=== PATIENT | female | born 2000 | race Caucasian/White ===

== ENCOUNTER 2021-10-28 13:39 | Outpatient (CLI) | payer BC, SELFPAY ==
--- NOTE | 2021-10-28 14:00 | CRLHL7_ITS ---
For Patients: As a result of the Century Cures Act, medical imaging exams and procedure reports are released immediately into your electronic medical record. You may view this report before your referring provider. If you have questions, please contact your health care provider. INDICATION: Evaluate anatomy. COMPARISON: 08.08.21 TECHNIQUE: Real time nieto scale imaging of the fetus was performed as well as color Doppler analysis of the umbilical vessels. FINDINGS: Sonographic imaging demonstrates a single living intrauterine gestation. Fetus demonstrates a regular cardiac rate of 148 beats per minute. Fetus has a variable position. The placenta lies posteriorly without evidence of placenta previa. Edge of the placenta is located 3.9 cm from the internal cervical os. Amniotic fluid volume appears normal. Single deepest vertical pocket: 4.9 cm. The cervix is closed and measures 3.0 cm in length. The composite ultrasound gestational age is calculated at 20 weeks 3 days with an estimated sonographic due date of 03/14/2022. The estimated weight is 335 grams which lies at the 54th %. The following biometric measurements were obtained: Biparietal diameter: 5.0 cm/21 weeks 0 days 87th% Head circumference: 17.8 cm/20 weeks 2 days 54th% Abdominal circumference: 15.5 cm/20 weeks 5 days 67th% Femur length: 3.0 cm/19 weeks 3 days 22nd% The HC/AC ratio measures: 1.15 range (1.07-1.25) On anatomic survey, there is a normal appearance of the cerebral ventricles, cavum septi pellucidi, cisterna magna and cerebellum. The nose, lips, and facial profile appear normal. The cervical, thoracic and lumbar spine are well visualized and appear normal. There is a normal four-chamber heart view and the left and right ventricular outflow tracts appear normal. The diaphragm and stomach appear normal. The kidneys and bladder also appear normal. There is a normal three-vessel cord and cord insertion site. The four extremities appear normal. IMPRESSION: Normal OB ultrasound exam with concordance of clinical and sonographic dating. No intrinsic abnormalities noted on anatomic survey. Dictated by Antwon Navarro MD @ 10/29/2021 8:39:39 AM (Electronically Signed)
== END 2021-10-28 13:40 | disposition home or self-care (01) ==
LOC: US 13:40
PROVIDERS: Visit Provider Physician Assistant
DX: Z34.92 Encounter for supervision of normal pregnancy, unspecified, second trimester (principal); Z3A.20 20 weeks gestation of pregnancy
CPT/HCPCS: 76805

== ENCOUNTER 2021-12-25 10:02 | Outpatient (CLI) | payer BC, SELFPAY ==
[2021-12-26 17:20] LABS: Rapid Plasma Reagin (RPR) Non Reactive (Non Reactive)
== END 2021-12-25 10:03 | disposition home or self-care (01) ==
LOC: NFLDREF 10:02
PROVIDERS: Visit Provider Obstetrics & Gynecology
DX: Z34.93 Encounter for supervision of normal pregnancy, unspecified, third trimester (principal); Z3A.28 28 weeks gestation of pregnancy
CPT/HCPCS: 86592

== ENCOUNTER 2022-02-19 15:11 | Outpatient (CLI) | payer BC, SELFPAY ==
[2022-02-19 16:45] LABS: Amphetamine Screen Urine Negative (Negative); Barbiturate Screen Urine Negative (Negative); Benzodiazepines Screen Urine Negative (Negative); Cannabinoid Screen Urine Negative (Negative); Cocaine Screen Urine Negative (Negative); Methadone Screen Urine Negative (Negative); Methamphetamines Screen Urine Negative (Negative); Opiate Screen Urine Negative (Negative); Oxycodone Screen Urine Negative (Negative); Phencyclidine Screen Urine Negative (Negative); Tricyclic Antidepressant Urine Negative (Negative)
[2022-02-20 18:48] LABS: Buprenorphine Screen Urine Negative (Negative)
== END 2022-02-19 15:12 | disposition home or self-care (01) ==
LOC: NFLDREF 15:28
PROVIDERS: Visit Provider Advanced Practice Midwife
DX: Z34.93 Encounter for supervision of normal pregnancy, unspecified, third trimester (principal); Z02.83 Encounter for blood-alcohol and blood-drug test
CPT/HCPCS: 80306

== ENCOUNTER 2022-02-20 09:23 | Outpatient (CLI) | payer BC, SELFPAY ==
[2022-02-21 10:44] LABS: Strep B DNA Probe POSITIVE (Negative)
== END 2022-02-20 09:24 | disposition home or self-care (01) ==
LOC: NFLDREF 09:23
PROVIDERS: Visit Provider Advanced Practice Midwife
DX: Z34.83 Encounter for supervision of other normal pregnancy, third trimester (principal); Z3A.37 37 weeks gestation of pregnancy
CPT/HCPCS: 87081; 87653

== ENCOUNTER 2022-03-05 15:40 | Outpatient (CLI) | payer BC, SELFPAY ==
--- NOTE | 2022-03-05 16:00 | CRLHL7_ITS ---
For Patients: As a result of the Cures Act, medical imaging exams and procedure reports are released immediately into your electronic medical record. You may view this report before your referring provider. If you have questions, please contact your health care provider. INDICATION: Size smaller than dates. TECHNIQUE: Transabdominal obstetrical ultrasound. COMPARISON: October 28, 2021. FINDINGS: Single living intrauterine in vertex presentation. Posterior placenta. heart rate 134 beats per minute. Normal amniotic fluid. Single deepest pocket measurement 7 cm. Biparietal diameter 9.5 cm, 30 weeks 6 days, 86 percentile. Head circumference 34.9 cm, 40 weeks 3 days, 82nd percentile. Abdominal circumference 35.1 cm, 39 weeks 0 days, 84th percentile. Femur length 7.4 cm, 37 weeks 6 days, 43rd percentile. Composite calculated ultrasound age 39 weeks 0 days with a sonographic due date of March 12, 2022. Appropriate growth and maturation since the prior study. Estimated weight 3622 g which lies at the 78th percentile. The head to abdominal circumference ratio is 0.99. The femur length to abdominal circumference ratio is 21.1. Both of these indices are normal. IMPRESSION: Single living intrauterine in vertex presentation. Posterior placenta. heart rate 134 beats per minute. Composite calculated ultrasound age 39 weeks 0 days with a sonographic due date of March 12, 2022. Dictated by Vipin Rivera MD @ 03/06/2022 9:00:23 AM (Electronically Signed)
== END 2022-03-05 15:41 | disposition home or self-care (01) ==
LOC: US 15:41
PROVIDERS: Visit Provider Advanced Practice Midwife
DX: O36.5930 Maternal care for other known or suspected poor fetal growth, third trimester, not applicable or unspecified (principal); Z3A.39 39 weeks gestation of pregnancy
CPT/HCPCS: 76816

== ENCOUNTER 2022-03-20 00:09 | Inpatient (IN) | payer BC, SELFPAY ==
[2022-03-20] VITALS (25 sets, daily range): BP systolic 119–154; BP diastolic 76–104; PULSE 73–99; RESP 16; TEMP 36.6–37.1; O2SAT 95–96; BMI 31.3
--- NOTE | 2022-03-20 01:09 | W.PM.LDBA ---
Subjective History of Present Illness Time Seen by Provider: 01:00 Date Seen: 03/20/22 Narrative: Patient is being admitted to Labor and Delivery for SROM, elevated blood pressures. She is a 21 year old at 40.3 weeks gestation. Her full history and physical was dictated by Buster Pickens on 02/25/22. Please see this for details. She states she noted a large gush of fluid around 11:30 tonight. Denies feeling any ctx. Denies any headache, vision changes or epigastric pain. Partner is at bedside for support. Blood type: A positive GBS POSITIVE H&P done 02/25/22 by Buster Pickens CNM 1. E cigarette use Discontinued with positive UPT 2. Marijuana use Planning on quitting. Urine drug screen 09/05/2021: +THC, otherwise negative UDS @ 36wk apt - neg, ok for waterbirth 3. History of depression Hospitalized for suicidality at age 14 At [facility]: doing well and on no medication 4. Rubella non-immune MMR 5. GBS positive, Needs antibiotics in labor 6. Measuring small for dates @ 38w 2d, Growth u/s ordered. 03/05/22 - Growth u/s: FHR 134, Vertex, SDP 7cm, 78%ile, EFW 3688g OB - H&P: Exam Physical Exam: Vital signs: Pulse BP 76 130/79 03/20/22 01:01 03/20/22 01:01 Constitutional: Constitutional: no acute distress Routine HEENT Exam: Head: Present atraumatic Routine Neck Exam: Neck: Present full ROM Routine Respiratory Exam: Respiratory: Present CTA bilaterally Routine Cardiovascular Exam: Cardiovascular: RRR Routine Exam: External: Present normal external exam Perineum Description: Normal Detailed Labor and Delivery Exam: Patient Gravid: yes Dilation (cm): 2 (2/70/-3) Effacement (%): 70 Cervix position: posterior Consistency: medium Contraction frequency (min): 0 (Rare mild ctx) Contraction intensity: Mild Fetus (Single): Station: -3 Amniotic Membrane Status: SROM (clear, 2330 on 03/19/22) Amniotic Membrane Fluid Description: Clear Heart Rate Baseline: 140 Monitor Accelerations: Present Monitor Decelerations: Variable (occ variable decel noted) Director Search Marketing Strategies Variability: Moderate (6-25) (min - mod) Routine Extremities Exam: Extremities: Present full ROM; Absent pedal edema Routine Back/Spine/Pelvis Exam: Back/Spine: full ROM Routine Skin Exam: Present intact, dry and warm Routine Neurological Exam: Present alert and oriented X3 Routine Psychiatric Exam: Present normal affect and normal thought process OB - Problem Based A/P Additional Plan (1) SROM (spontaneous rupture of membranes): Status: Acute (2) History of marijuana use: Problem details: UDS today d/t positive screen in early , pt denies current or recent use. Status: Acute Plan at 40.3 weeks GBS Positive complicated by marijuana use, Stopped by third trimester SROM X 2 hours, clear fluid Occ variable decels Elevated blood pressures on admit Admit to L & D Reviewed expectant management vs augmentation. Recommended augmentation w/ oral cytotec r/t elevated blood pressures. Risks and benefits reviewed. Candidate for analgesia of choice. Planning unmedicated Desires waterbirth. Hep C negative and consent signed. UDS negative at 36 weeks. Remains a candidate at this time, but may risk out if BPs continue to rise or decels worsen Start GBS prophylaxis per protocol Continues monitoring r/t augmentation and concern for variable decels Preeclampsia labs collected, pending. Will continue to monitor BPs and consult if needed Anticipate progress to NVD. Delivery/Labor/Induction Plan Induction method: per misoprostol protocol
[2022-03-20] MEDS: LACTATED RINGERS 1000 ML 1,000 ML IV ×2 (01:14→12:00)
[2022-03-20 01:15] LABS: Hematocrit 36.4 % (33.0-51.0); Hemoglobin* 12.4 gm/dL (12.0-16.0); Mean Corpuscular HGB Conc 34 gm/dL (32-36); Mean Corpuscular Hemoglobin 32 pg (26-34); Mean Corpuscular Volume 93 fL (80-100); Platelet Count* 167 K/uL (140-440); Red Blood Count 3.93 m/uL (4.00-5.20); White Blood Count* 6.65 K/uL (4.50-11.00)
[2022-03-20] MEDS: AMPICILLIN 2 GM in 0.9 % SODIUM CHLORIDE Mini-bag 100 ML IVPB (01:15)
[2022-03-20] MEDS: miSOPROStoL 25 MCG/0.25 TABLET PO (01:15)
[2022-03-20 01:23] LABS: Slide Review Reflex No
[2022-03-20 01:58] LABS: Alanine Aminotransferase* 51 U/L (4-35); Creatinine* 0.4 mg/dL (0.5-1.5); Est. Creatinine Clearance* 206.52; Estimated Glomerular Filt Rate 143 ml/min; SARS PCR* Negative SARS-CoV-2 (Negative)
[2022-03-20 01:59] LABS: Aspartate Amino Transferase* 39 U/L (12-35); Blood Urea Nitrogen* 10 mg/dL (5-24)
[2022-03-20 02:18] LABS: Total Protein Urine 25 mg/dL
[2022-03-20 02:20] LABS: Creatinine Urine 72.7 mg/dL
[2022-03-20 02:30] LABS: Amphetamine Screen Urine Negative (Negative); Barbiturate Screen Urine Negative (Negative); Benzodiazepines Screen Urine Negative (Negative); Cannabinoid Screen Urine Negative (Negative); Cocaine Screen Urine Negative (Negative); Methadone Screen Urine Negative (Negative); Methamphetamines Screen Urine Negative (Negative); Opiate Screen Urine Negative (Negative); Oxycodone Screen Urine Negative (Negative); Phencyclidine Screen Urine Negative (Negative); Tricyclic Antidepressant Urine Negative (Negative)
--- NOTE | 2022-03-20 02:53 | PM.OBPNL ---
Subjective Time Seen by Provider: 02:45 Date Seen: 03/20/22 Narrative: Called to bedside by RN to review the FHTs. Elsy presented to triage with SROM, large amount of clear fluid. At the time of admit, had an occasional ctx with a variable. SVE was 2/70/-3 at that time. Blood pressures were elevated, and preecalmpsia labs were ordered and pending. Since then, she was given 1 dose of cytotec around 0115 per RN. She is now having more frequent ctx that she states she can barely feel. Repetitive late decels noted with those ctx. ?Her blood pressures have remained elevated. Objective Exam: VSS, afebrile General Appearance:? Calm, cooperative. No acute distress. ? Psychiatric Exam: Alert and oriented, appropriate affect Abdomen: Gravid Ctx: ?Q 2-4 min apart. ?Mild FHTs: Baseline: 165 Variability: min Accels: none Decels: repetitive late decels, maria fernanda 90-135. SVE: 2/60/-4 Membranes: SROM X 3.5 hours ? Vital Signs: Last Vital Signs Pulse 77 03/20/22 02:15 BP 139/90 H 03/20/22 02:15 Assessment Heart Rate Baseline: 140 Plan Plan: Assessment:?? 21 yo at 40.3 weeks gestation?? GBS positive She is parminder, but remains comfortable at this time Labor type: Augmented w/ cytotec X 1 dose. complicated by: marijuana use, stopped by 3rd trimester Labor complicated by: -minimal variability, repetitive persistent late decels? Preeclampsia -BPs 140s/90s Abnormal labs. P/C ratio 0.3, elevated AST and ALT ? Plan:?? IV fluid bolus already started by RN. Various position changes attempted without resolution of decels Pt remote from delivery Dr. Warren consulted. She will come in to further evaluate. Team called in in case decision made to proceed with a Reviewed with pt current situation. Questions answered.
--- NOTE | 2022-03-20 05:21 | PM.OBPNL ---
Subjective Time Seen by Provider: 06:45 Date Seen: 03/20/22 Narrative: Daina is coping well with labor pain/contractions. She is starting to feel them now, but remains comfortable at this time. She is currently being supported by her partner and mom. Plan of care reviewed previously. Once called for consult, Dr. Warren arrived and reviewed the fht's strip, which had somewhat improved at that time. Decision at that time made to proceed with pitocin 4 hours after initial cytotec to allow for more control/ability to D/C if not tolerated by the baby. And continue to monitor the FHTs closely. Dr. Warren and OR team to remain in house. Objective Exam: VSS, afebrile General Appearance:? Calm, cooperative. No acute distress. ? Psychiatric Exam: Alert and oriented, appropriate affect Abdomen: Gravid Ctx: ?Q 2-4 min apart. ?Mild FHTs: Baseline: 150 Variability: min - mod Accels: none noted Decels: variable and late decels noted at times SVE: deferred at this time Membranes: SROM 7.5 hrs X hours ? Vital Signs: Last Vital Signs Pulse 83 03/20/22 04:06 BP 137/82 03/20/22 04:06 Assessment Heart Rate Baseline: 140 Plan Plan: Assessment:?? 21 yo at 40.3 weeks gestation?? Patient is coping well with challenges of labor.?? Labor: pitocin augmented after SROM FHTs: variable and late decels at times? complicated by: marijuana use Labor complicated by: -late an variable decels -preeclampsia GBS +? ? Plan:?? Continue with routine intrapartum cares as ordered.?? Continue with pitocin augmentation. Will continue to monitor the FHTs strip closely. Consult manager of selection and assessment OB as needed. Continue GBS prophylaxis per protocol Continue to monitor BPs closely. Patient encouraged to change positions to promote physiologic labor and .?? Nonpharmacologic comfort measures per patient preference. Monitor for progress.
[2022-03-20] MEDS: LACTATED RINGERS 1000 ML 1,000 ML 125 ML IV (05:24)
[2022-03-20] MEDS: OXYTOCIN 30 unit/500 ML in NS 30 UNIT/500 ML BAG IVPB (05:25)
[2022-03-20] MEDS: AMPICILLIN 1 GM in 0.9 % SODIUM CHLORIDE Mini-bag 100 ML IVPB ×2 (05:28→09:13)
--- NOTE | 2022-03-20 10:15 | PM.OBPNL ---
Subjective Date Seen: 03/20/22 Narrative: Daina is feeling an increase in pain and pressure with contractions. She is feeling rectal pressure with contractions that has increased over the last hour. She was checked by the RN and found to be 7-8//90%/-1 to 0 station. She has been changing positions from left later, right later with the peanut ball and now thrown position. She just starting using nitrous and is having some relief with it. She continues to have some lates along with earlys and variables. Good variability. will continue to monitor the strip and provide support to the patient. Pitocin was turned off around 0930 and she has continued to contract regularly. Objective Vital Signs: Last Vital Signs Temp 98.2 F 03/20/22 07:30 Pulse 73 03/20/22 09:54 BP 138/82 03/20/22 09:54 Pelvic Exam Dilation (cm): 7-8 Effacement (%): 90 Station: -1 Contractions Monitor mode: External Contraction pattern: Regular Contraction intensity: Strong/Firm Pitocin Rate (mU/min): 0 Assessment Assessment: active labor Station: -1 Amniotic Membrane Status: SROM (clear, 2330 on 03/19/22) Status: Category ll Heart Rate Baseline: 140 Food Or Baggage Handling [place] Variability: Moderate (6-25) Monitor Accelerations: Present Monitor Decelerations: Variable (occ variable decel noted) Plan Plan: 1. Continue to monitor tracing closely and consult with OB if needed. 2. Provide labor support and frequent position changes to promote optimal position and for tolerance of labor. 3. Continuous monitoring.
[2022-03-20] MEDS: IBUPROFEN 600 MG TABLET PO ×2 (13:24→19:52)
--- NOTE | 2022-03-20 13:26 | P.OBPRC_ITS ---
Procedure Procedure Done: Global Procedure Details: Procedures Operation Date: 03/20/22 04:00 Actual Procedure Side Surgeon p Section Beckie Warren MD Events: Pre-Eclampsia (Pre-Ecampsia without severe features) Intrapartal Events: Labor Augmentation (cytotec x1 and pitocin) and Distress (late, early and varible decels) Delivery augmentation: pitocin Delivery monitor: external FHT and external uterine Route of delivery: Episiotomy description: Left Mediolateral (2rd degree equivilent without extension) Laceration description: None Delivery repair: Chromic Estimated blood loss (mL): 50 Anesthesia type: nitrous Disposition: floor Narrative: Patient is a 21 year-old G1 now P1 admitted on 03/20/2022 at 40 Weeks, 3 Days gestation for SROM.? Cervical exam on admission was 2 cm/70 % effaced/-3 station with membranes ruptured in vertex presentation.? Contractions were occasional and she denied feeling any pain with them.? heart rate demonstrated baseline 140 bpm with moderate variability, + accelerations, variable decelerations; a category 2 tracing.? SROM occurred on 03/19/22 at 2330 with clear fluid.? ?? Labor Analgesia:? None. Used nitrous some but now with pushing. ?? Pitocin:? Yes. Augmentation and after delivery of the placenta. Pitocin stopped at 0930 and she continued to contract on her own. ?? Labor onset:? 0400? ?? Complete:? 1147? ?? Pushing:? 1149? ?? heart tones during second stage were category 2. Baseline 120-130 with moderate variability. Frequent late, early and variable decelerations noted. One prolonged decel to the 80's with return to baseline. Dr. Ren called to the room at that time and arrived at 1150. Consulted and considered vacuum assistance but patient was pushing very effectively so allowed to continue pushing. Dr. Ren noted that there was a very tight perineum and opted for a episiotomy to expedite delivery due to concerns with the heart tracing.? ?? At 1213 a viable male infant delivered in vertex CATHY presentation over episiotomy via spontaneous vaginal delivery.? Infant was placed on maternal abdomen.? Cord was clamped and cut after a 5 minute.? Nose and mouth were bulb suctioned.? Infant weight 3290g.? 8 at 1 minute and 9 at 5 minutes.? Shoulder dystocia: no.? Nuchal cord: no, cord around arms and in babies hands at delivery..? ?? Placenta delivered spontaneously and complete at 1220 with a 3 vessel cord.?Velamentous, marginal cord noted on delivery but not recognized on ultrasound. ?? Mother and were stable after delivery.? ?? Lacerations:? Left mediolateral episiotomy cut by Dr. Ren without extension, equivalent to 2nd degree laceration, repaired.? ?? Blood loss: 50 mL.? Blood loss measurement type: QBL? Sponge and needles counts are correct. [place] Infant Gender: Male presentation: vertex Placental Delivery Description: Spontaneous Cord Description: 3 Vessels, Around Body x1 and Around Extremity x1 (loosly wrapped up in arms and hands at delivery) [place] A Position: Right Occiput Anterior Placental Delivery: Spontaneous Cord Description: Around Extremity x1 (loosely wrapped around arms and hands at delivery) OB Vag Delivery Procedures Additional Procedures ECV: No NST: Yes D&C: No Laceration Repair: Yes
[2022-03-20] MEDS: LIDOCAINE 1% MDV 20 ML INJECTION (13:35)
[2022-03-20] MEDS: ACETAMINOPHEN 500 MG TABLET 1000 MG PO ×2 (15:55→22:40)
[2022-03-21 00:39] VITALS: BP 130/80; PULSE 99; RESP 16; TEMP 36.6; O2SAT 96
[2022-03-21] MEDS: IBUPROFEN 600 MG TABLET PO ×2 (01:30→07:58)
[2022-03-21 04:09] LABS: Hematocrit 37.6 % (33.0-51.0); Hemoglobin* 12.7 gm/dL (12.0-16.0); Mean Corpuscular HGB Conc 34 gm/dL (32-36); Mean Corpuscular Hemoglobin 32 pg (26-34); Mean Corpuscular Volume 93 fL (80-100); Platelet Count* 191 K/uL (140-440); Red Blood Count 4.03 m/uL (4.00-5.20); White Blood Count* 15.49 K/uL (4.50-11.00)
[2022-03-21 04:16] LABS: Slide Review Reflex No
[2022-03-21 04:25] LABS: Alanine Aminotransferase* 46 U/L (4-35); Aspartate Amino Transferase* 48 U/L (12-35); Blood Urea Nitrogen* 15 mg/dL (5-24); Creatinine* 0.5 mg/dL (0.5-1.5); Est. Creatinine Clearance* 165.22; Estimated Glomerular Filt Rate 136 ml/min; INR 0.87 (0.91-1.10); Prothrombin Time 12.4 Seconds
[2022-03-21 04:26] LABS: Fibrinogen* 476 mg/dL (200-450)
[2022-03-21 04:38] VITALS: BP 136/90; PULSE 99; RESP 16; TEMP 36.6; O2SAT 96
[2022-03-21 09:34] VITALS: BP 127/88; PULSE 88; RESP 18; TEMP 36.6; O2SAT 95
--- NOTE | 2022-03-21 09:34 | P.DS_ITS ---
DS: Providers Provider Date Seen: 03/21/22 Date of admission: 03/20/22 00:09 Primary care physician: Not a Local Provider Admitting Clinician: Erin Boyce CNM Consults: 03/20/22 00:28 Consult to Fire Extinguisher Repairer Inspector [CONS] Routine Comment: Reason for Consult:: Substance Abuse Screening Attending Physician on discharge: Minoo Ye CNM Date of Discharge: 03/21/22 DS: Diagnosis Discharge Diagnosis (1) care and examination immediately after delivery: Status: Acute (2) Lactating mother: Status: Acute (3) Status post vaginal delivery: Status: Acute Exam Const: Vital Signs, click to edit/add: Vital Signs - 24 hr 03/20/22 09:54 03/20/22 10:49 03/20/22 10:57 Temperature Pulse Rate 73 81 79 Pulse Rate [Pulse Oximeter] Respiratory Rate Blood Pressure 138/82 149/96 H 154/91 H Blood Pressure [Le ft Arm] Pulse Oximetry Oxygen Delivery Me thod 03/20/22 12:24 03/20/22 12:43 03/20/22 12:55 Temperature Pulse Rate 98 80 85 Pulse Rate [Pulse Oximeter] Respiratory Rate Blood Pressure 137/85 126/79 137/82 Blood Pressure [Le ft Arm] Pulse Oximetry Oxygen Delivery Me thod 03/20/22 13:10 03/20/22 13:25 03/20/22 13:26 Temperature Pulse Rate 81 76 73 Pulse Rate [Pulse Oximeter] Respiratory Rate Blood Pressure 137/90 H 154/94 H 153/96 H Blood Pressure [Le ft Arm] Pulse Oximetry Oxygen Delivery Me thod 03/20/22 13:40 03/20/22 13:55 03/20/22 14:10 Temperature Pulse Rate 78 75 83 Pulse Rate [Pulse Oximeter] Respiratory Rate Blood Pressure 144/91 H 150/89 H 154/91 H Blood Pressure [Le ft Arm] Pulse Oximetry Oxygen Delivery Me thod 03/20/22 15:50 03/20/22 19:55 03/21/22 00:39 Temperature 97.9 F 97.9 F 97.9 F Pulse Rate Pulse Rate [Pulse Oximeter] 87 99 99 Respiratory Rate 16 16 16 Blood Pressure Blood Pressure [Le ft Arm] 119/76 130/89 130/80 Pulse Oximetry 95 96 96 Oxygen Delivery Me thod Room Air Room Air Room Air 03/21/22 04:38 Temperature 97.9 F Pulse Rate Pulse Rate [Pulse Oximeter] 99 Respiratory Rate 16 Blood Pressure Blood Pressure [Le ft Arm] 136/90 H Pulse Oximetry 96 Oxygen Delivery Me thod Room Air Documenting provider has reviewed patient's vital signs: yes Common normals: no apparent distress, oriented x3, healthy appearing and alert HENMT: Common normals: normocephalic Head and scalp: normocephalic Eye: Common normals: PERRL Pupil: PERRL Neck & C-Spine: Common normals: full ROM and supple Chest: Common normals: inspection of chest normal Resp: Common normals: normal respiratory effort and clear to auscultation bilaterally Auscultation: clear to auscultation bilaterally Cardio: Common normals: regular rate and regular rhythm Rate: regular rate Rhythm: regular rhythm GI: Common normals: soft to palpation Inspection: normal to inspection Palpation: soft : OB/external & speculum: Yes perineal/vaginal laceration (Episiotomy; well approximated) Uterus: U/U Lochia: small Back & Pelvis: Common normals: thoracic and lumbar spine normal to inspection Extremity: Common normals: normal to inspection and full ROM Neuro: Common normals: oriented x3 Sensorium/orientation: alert Speech: speech normal Psych: Common normals: mental status grossly normal, thought process normal, speech normal and activity/motor behavior normal Speech: normal speech Thought process: normal thought process Skin: Common normals: no rashes or lesions noted General skin exam: no rashes or lesions noted OB - DS: Summary Hospital Course Hospital Course: The patient is a 21 year old G [] P [] at [] weeks gestation that was admitted to the Center on 03/20/22 for []. She had an [uncomplicated/complicated] [vaginal/] delivery. She delivered a viable [male/female] infant. She is [breast/bottle] feeding. the patient has done well. Time spent discussing smoking cessation with patient: 3 to 10 minutes Peripartum Data delivery method: Vaginal Episiotomy description: Left Mediolateral Procedures: Procedures Operation Date: 03/20/22 04:00 Actual Procedure Side Surgeon p Section Beckie Warren MD complications: none Gender: Male Discharge Plan: Home Time Spent with Patient Time attestation: Total time spent providing and/or coordinating discharge services: Discharge Plan Discharge Disposition: Home, Self-Care Date of Admission: 03/20/22 00:09 Attending Provider on Discharge: Minoo Ye Primary Care Provider: Provider,Not a Local Condition: Stable Anticipated Discharge Date/Time: 03/21/22 12:00 Discharge Medications: New acetaminophen 500 mg Tablet 1,000 mg PO Q6H PRNQty: 0 0RF docusate sodium 100 mg Capsule 100 mg PO DAILY Qty: 90 0RF ibuprofen 600 mg Tablet 600 mg PO Q6H PRNQty: 60 0RF Continued Multi-DHA(with vit K) 27 mg iron-800 mcg-260 mg capsule 1 cap PO .QD Discontinued pyridoxine (vitamin B6) 50 mg tablet 50 mg PO ONCE Discharge Orders: Discharge Order (Routine); Ordered 03/21/22 Ordered By: Minoo Ye Patient Education: OB Vaginal/Breast Feeding Additional Instructions: Discharge instructions were reviewed with the patient including signs and symptoms of infection and home going medications Nothing vaginally for 6 weeks: no tampons or intercourse Off Work or School for 6 weeks 2-week visit: discuss infant feeding concerns, review control options and screen for anxiety/depression. 6-week visit for an annual exam. consultation services are available to all mothers and babies for the first year after delivery.? To make an appointment, please call [phone]. Activity Level: Activity as Tolerated Discharge Diet: Regular Follow Up Appointments: [facility] [Provider Group] (2 weeks and 6 weeks ) Forms: [employer] Info Instructions
[2022-03-21 12:38] VITALS: BP 127/83; PULSE 97; RESP 16; TEMP 37.2; O2SAT 96
--- NOTE | 2022-03-21 16:14 | PC.SOCIAL ---
Social Work received a referral for substance abuse screening. Reviewed toxicology screen for mother and it was negative for all substances. Meconium for baby is pending. Social Work will follow up as necessary. ?
--- NOTE | 2022-03-27 15:07 | PC.SOCIAL ---
Follow up from 03/20/22 referral from OB. Meconium for pt was negative for all substances on 03/22/22. No further needs from [facility].
== END 2022-03-21 17:27 | disposition home or self-care (01) | DRG 560 ==
LOC: OB OUT 00:38 → OB 00:38
PROVIDERS: Advanced Practice Midwife; Obstetrics & Gynecology; Admitting Provider Advanced Practice Midwife; Visit Provider Advanced Practice Midwife
PROC: (CPT 59514; principal; 2022-03-20 03:45)
DX: O14.04 Mild to moderate pre-eclampsia, complicating childbirth (principal); O99.824 Streptococcus B carrier state complicating childbirth; O76 Abnormality in fetal heart rate and rhythm complicating labor and delivery; O99.344 Other mental disorders complicating childbirth; F32.A Depression, unspecified; O99.324 Drug use complicating childbirth; F12.91 Cannabis use, unspecified, in remission; Z3A.40 40 weeks gestation of pregnancy; Z37.0 Single live birth
CPT/HCPCS: 36415; 59200; 80306; 82565; 82570; 84156; 84450; 84460; 84520; 85027; 85384; 85610; 86850; 86900; 86901; 87635; A9270; C9290; J0290; J1100; J1885; J2274; J2370; J2405; J2590; J3010; J3490; J7120

== ENCOUNTER 2023-04-17 09:53 | Outpatient (CLI) | payer BC, SELFPAY | END 2023-04-17 09:54 | disposition home or self-care (01) | LOC: NFLDREF 04-27 19:39 | PROVIDERS: Visit Provider Obstetrics & Gynecology | DX: O20.9 Hemorrhage in early pregnancy, unspecified (principal) | CPT/HCPCS: 84702 ==

== ENCOUNTER 2023-07-19 09:20 | Emergency (ER) | payer BC, SELFPAY ==
[2023-07-19 09:25] VITALS: BP 124/84; PULSE 97; RESP 16; TEMP 36.2; O2SAT 98; BMI 21.0
--- NOTE | 2023-07-19 09:36 | ED.GENADULT ---
HPI - General Adult General Chief complaint: Weakness Stated complaint: Flu A one week, dizzy Time Seen by Provider: 07/19/23 09:23 History of Present Illness HPI narrative: Patient is a 22-year-old female diagnosed with influenza B about a week ago, had a negative strep. She continues to feel little bit lightheaded dizzy cough she is drinking adequately and drinking mugs of water and other juice. She has not had a great appetite has it been able to little bit of toast. She denies , denies significant medical illness. She has been taking Tylenol, she did take Tamiflu as well. She has had no production to her cough she has had no significant sore throat that is changed. She has some generalized body aching still. Her fever is largely abated. 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 Smoking Status: Never smoker Do you use any of these nicotine containing products: Vaping Products Smokeless tobacco user details: Quit following positive test How often do you have a drink containing alcohol: never AUDIT-C Alcohol total score: 0 Non-prescribed substance use: marijuana (any form) Non-prescribed substance use details: Quitting, noted 08/08/2021 Little interest or pleasure in doing things: not at all Feeling down, depressed, or hopeless: several days Exam Narrative: Exam Narrative: Objective: Patient's vital signs are within normal limits O2 sat excellent at 90% HEENT unremarkable Patient noncyanotic HEENT otherwise unremarkable Throat clear Neck is supple Chest is clear no rales or wheezing Pulses regular Neurologic nonfocal Good peripheral perfusion skin warm and dry Const: Vital Signs, click to edit/add: Vital Signs - 24 hr 07/19/23 09:25 Temperature 97.2 F L Pulse Rate [Right Pulse Oximeter] 97 Respiratory Rate 16 Blood Pressure [Ri ght Upper Arm] 124/84 Pulse Oximetry 98 Oxygen Delivery Me thod Room Air Course Vital Signs Vital signs: Initial Vital Signs Temperature 97.2 F L 07/19/23 09:25 Temperature Source Temporal Artery Scan 07/19/23 09:25 Pulse Rate 97 07/19/23 09:25 Pulse Rhythm Regular 07/19/23 09:25 Pulse Strength 3+ Normal 07/19/23 09:25 Respiratory Rate 16 07/19/23 09:25 Blood Pressure 124/84 07/19/23 09:25 Blood Pressure Mean 97 07/19/23 09:25 Blood Pressure Position Sitting 07/19/23 09:25 Pulse Oximetry 98 07/19/23 09:25 Oxygen Delivery Method Room Air 07/19/23 09:25 Vital Signs Temperature 97.2 F L 07/19/23 09:25 Pulse Rate 97 07/19/23 09:25 Respiratory Rate 16 07/19/23 09:25 Blood Pressure 124/84 07/19/23 09:25 Pulse Oximetry 98 07/19/23 09:25 Oxygen Delivery Method Room Air 07/19/23 09:25 Temperature 97.2 F L 07/19/23 09:25 Pulse Rate 97 07/19/23 09:25 Respiratory Rate 16 07/19/23 09:25 Blood Pressure 124/84 07/19/23 09:25 Pulse Oximetry 98 07/19/23 09:25 Oxygen Delivery Method Room Air 07/19/23 09:25 Medical Decision Making MDM Narrative Medical decision making narrative: Patient is a 22-year-old female who is 8 days status post diagnosis of influenza B. She had a negative strep test. I suspect a lot of her symptoms are just due to influenza B and its persistence for the 10-14 day course. Would recommend she use ibuprofen and Tylenol, would check a electrolyte panel and a CBC for completeness. I do not suspect pneumonia given her eggs normal lung exam. The family is debating whether to leave and then will call them with the results of the lab I think that be acceptable. I think she can continue hydration , rest ,light activity and recheck as needed with her regular doctor. Return to ED sooner problems concerns Lab Data Labs: Lab Results 07/19/23 Range/Units 09:42 WBC 2.36 L (4.50-11.00) K/uL RBC 4.60 (4.00-5.20) m/uL Hgb 14.0 (12.0-16.0) gm/dL Hct 41.6 (33.0-51.0) % MCV 90 (80-100) fL MCH 30 (26-34) pg MCHC 34 (32-36) gm/dL RDW Coeff of Chandrakant 12.3 (11.5-15.5) % Plt Count 132 L (140-440) K/uL Neut % (Auto) 47.1 (42.0-72.0) % Lymph % (Auto) 39.4 (20-44) % [place] % (Auto) 12.3 H (0.0-11.0) % Eos % (Auto) 0.8 (0.0-7.0) % Baso % (Auto) 0.4 (0.0-3.0) % Neut # (Auto) 1.10 L (1.7-7.0) K/uL Lymph # (Auto) 0.90 (0.90-2.90) K/uL [place] # (Auto) 0.30 (0.00-0.90) K/UL Eos # (Auto) 0.00 (0.00-0.50) K/uL Baso # (Auto) 0.00 (0.00-0.30) K/uL Abs Immat Gran (auto) 0.00 (0.00-0.30) K/uL Imm/Tot Granulo (auto) 0.0 % Diff Slide Review Acceptable Review (Acceptable) Sodium 136 (135-149) mmol/L Potassium 3.7 (3.6-5.1) mmol/L Chloride 98 (96-114) mmol/L Carbon Dioxide 31 (20-32) mmol/L Anion Gap 7 (7-15) mEq/L BUN 8 (5-24) mg/dL Creatinine 0.5 (0.5-1.5) mg/dL Estimated Creat Clear 162.90 Estimated GFR 135 ml/min Glucose 112 (60-115) mg/dL Calcium 9.2 (8.4-10.6) mg/dL Discharge Plan Discharge Clinical Impression: Influenza B Patient Disposition: Home w/ Parent or Adult Condition: Stable Additional Instructions: Rest, fluids, light activity, Tylenol and Advil as needed, recheck with regular doctor in 3-4 days not improving changes concerns worsening return to the ED sooner. Activity Level: Light activity Discharge Diet: Regular Prescriptions: No Action oseltamivir [Tamiflu] 75 mg capsule 75 mg PO BID 5 Days Qty: 10 0RF Follow Up/Referrals: Provider,Not a Local [Primary Care Provider] - Stand Alone Forms: [employer] Info Instructions
[2023-07-19 09:52] LABS: Basophils Percent Auto 0.4 % (0.0-3.0); Eosinophils Percent Auto 0.8 % (0.0-7.0); Hematocrit 41.6 % (33.0-51.0); Lymphocytes Percent Auto 39.4 % (20-44); Mean Corpuscular HGB Conc 34 gm/dL (32-36); Mean Corpuscular Hemoglobin 30 pg (26-34); Mean Corpuscular Volume 90 fL (80-100); Monocytes Percent Auto 12.3 % (0.0-11.0); Neutrophils Percent Auto 47.1 % (42.0-72.0); Platelet Count* 132 K/uL (140-440); RDW Coefficient of Variation % 12.3 % (11.5-15.5); White Blood Count* 2.36 K/uL (4.50-11.00)
[2023-07-19 10:07] LABS: Chloride* 98 mmol/L (96-114); Potassium* 3.7 mmol/L (3.6-5.1); Sodium* 136 mmol/L (135-149)
[2023-07-19 10:10] LABS: Anion Gap 7 mEq/L (7-15); Blood Urea Nitrogen* 8 mg/dL (5-24); Carbon Dioxide* 31 mmol/L (20-32); Creatinine* 0.5 mg/dL (0.5-1.5); Estimated Glomerular Filt Rate 135 ml/min; Glucose* 112 mg/dL (60-115); Slide Review Acceptable Review (Acceptable); Slide Review Reflex Yes
[2023-07-19 10:11] LABS: Calcium* 9.2 mg/dL (8.4-10.6)
== END 2023-07-19 09:50 | disposition home or self-care (01) ==
LOC: ED 09:47
PROVIDERS: Emergency Provider Family Medicine
DX: J10.1 Influenza due to other identified influenza virus with other respiratory manifestations (principal)
CPT/HCPCS: 36415; 80048; 85025; 99283

== ENCOUNTER 2024-01-22 08:54 | Outpatient (CLI) | payer BC, SELFPAY ==
--- NOTE | 2024-01-22 09:15 | CRLHL7_ITS ---
For Patients: As a result of the Century Cures Act, medical imaging exams and procedure reports are released immediately into your electronic medical record. You may view this report before your referring provider. If you have questions, please contact your health care provider. INDICATION: First trimester scan, establish dates. COMPARISON: None. TECHNIQUE: Real-time nieto-scale imaging of the pelvis was performed. FINDINGS: A small intrauterine gestational sac is present measuring 7.6 millimeters, 5 weeks 4 days. No pole. No yolk sac. Subchorionic hemorrhage is present measuring 1.5 x 0.2 x 1.3 cm. Corpus luteal cyst right ovary. Normal left ovary. IMPRESSION: Intrauterine gestational sac measuring 5 weeks 4 days without pole or yolk sac. Follow-up in 2 weeks recommended. Dictated by Antwon Navarro MD @ 01/24/2024 10:18:12 PM (Electronically Signed)
== END 2024-01-22 08:55 | disposition home or self-care (01) ==
LOC: US 08:55
PROVIDERS: Visit Provider Advanced Practice Midwife
DX: Z34.91 Encounter for supervision of normal pregnancy, unspecified, first trimester (principal); Z3A.01 Less than 8 weeks gestation of pregnancy
CPT/HCPCS: 76817

== ENCOUNTER 2024-02-08 16:49 | Outpatient (CLI) | payer BC, SELFPAY ==
--- NOTE | 2024-02-08 17:00 | CRLHL7_ITS ---
For Patients: As a result of the Cures Act, medical imaging exams and procedure reports are released immediately into your electronic medical record. You may view this report before your referring provider. If you have questions, please contact your health care provider. OB ULTRASOUND INDICATION: Follow-up early . COMPARISON: 01/22/2024. Previous US: Yes 01/22/2024. PAULA by US: 09/19/2024. GA: 5 w, 4 d. CRL: 1.5 cm. 7 w 6 d. PAULA: 09/20/2024. FHR: 157 BPM. Gestational sac: Appears within normal limits. Yolk sac: 3.2 mm. Appears within normal limits. Right ovary: 2.7 x 3.3 x 2.8 cm. CL. Left ovary: 2.5 x 1.4 x 1.7 cm. IMPRESSION: 1. Single viable intrauterine . 2. 7 weeks 6 days gestation by today???s measurements. Alfredito Chapman M.D. Body/Diagnostic Radiologist [email or web address] LU/baudilio astudillo/Dictated by: Alfredito Chapman MD @ 02/10/2024 12:24:00 PM (Electronically Signed)
== END 2024-02-08 16:50 | disposition home or self-care (01) ==
LOC: US 16:49
PROVIDERS: Visit Provider Advanced Practice Midwife
DX: Z34.91 Encounter for supervision of normal pregnancy, unspecified, first trimester (principal); Z3A.01 Less than 8 weeks gestation of pregnancy
CPT/HCPCS: 76817; 80306; 82565; 82570; 84156; 84450; 84460; 84520; 86592; 86703; 86704; 86706; 86762; 86787; 86803; 86850; 86900; 86901; 87086; 87340; 87491; 87591

== ENCOUNTER 2024-02-11 08:37 | Outpatient (CLI) | payer BC, SELFPAY | END 2024-02-11 08:38 | disposition home or self-care (01) | PROVIDERS: Visit Provider Physician Assistant | DX: Z34.91 Encounter for supervision of normal pregnancy, unspecified, first trimester (principal); Z3A.01 Less than 8 weeks gestation of pregnancy | CPT/HCPCS: 82570; 84156 ==

== ENCOUNTER 2024-05-02 14:46 | Outpatient (CLI) | payer BC, SELFPAY ==
--- NOTE | 2024-05-02 15:00 | CRLHL7_ITS ---
For Patients: As a result of the Century Cures Act, medical imaging exams and procedure reports are released immediately into your electronic medical record. You may view this report before your referring provider. If you have questions, please contact your health care provider. INDICATION: Evaluate anatomy. COMPARISON: 02/08/2024 TECHNIQUE: Real time nieto scale imaging of the fetus was performed as well as color Doppler analysis of the umbilical vessels. FINDINGS: Sonographic imaging demonstrates a single living intrauterine gestation. Fetus demonstrates a regular cardiac rate of 141 beats per minute. Fetus has a vertex position. The placenta lies anteriorly without evidence of placenta previa. Amniotic fluid volume appears normal. Single deepest vertical pocket: 5.3 cm. The cervix is closed and measures 4.1 cm in length. The composite ultrasound gestational age is calculated at 20 weeks 0 days with an estimated sonographic due date of 09/19/2024. The estimated weight is 311 grams which lies at the 40th %. The following biometric measurements were obtained: Biparietal diameter: 4.7 cm/20 weeks 1 day 61st% Head circumference: 17.4 cm/20 weeks 0 day 47th% Abdominal circumference: 14.8 cm/20 weeks 1 day 53rd% Femur length: 3.0 cm/19 weeks 2 days 23rd% The HC/AC ratio measures: 1.18 range (1.08-1.25) On anatomic survey, there is a normal appearance of the cerebral ventricles, cavum septi pellucidi, cisterna magna and cerebellum. The nose, lips, and facial profile appear normal. The cervical, thoracic and lumbar spine are well visualized and appear normal. There is a normal four-chamber heart view and the left and right ventricular outflow tracts appear normal. The diaphragm and stomach appear normal. The kidneys and bladder also appear normal. There is a normal three-vessel cord and cord insertion site. The four extremities appear normal. IMPRESSION: Normal OB ultrasound exam with concordance of clinical and sonographic dating. No intrinsic abnormalities noted on anatomic survey. Dictated by Antwon Navarro MD @ 05/03/2024 12:36:53 PM (Electronically Signed)
== END 2024-05-02 14:47 | disposition home or self-care (01) ==
LOC: US 14:47
PROVIDERS: Visit Provider Physician Assistant
DX: Z34.92 Encounter for supervision of normal pregnancy, unspecified, second trimester (principal); Z3A.20 20 weeks gestation of pregnancy
CPT/HCPCS: 76805

== ENCOUNTER 2024-06-28 16:12 | Outpatient (CLI) | payer BC, SELFPAY | END 2024-06-28 16:13 | disposition home or self-care (01) | LOC: NFLDREF 16:13 | PROVIDERS: Visit Provider Midwife | DX: F12.90 Cannabis use, unspecified, uncomplicated (principal) | CPT/HCPCS: 80306; 86592 ==

== ENCOUNTER 2024-08-08 13:24 | Outpatient (CLI) | payer BC, SELFPAY ==
--- NOTE | 2024-08-08 13:45 | CRLHL7_ITS ---
For Patients: As a result of the Century Cures Act, medical imaging exams and procedure reports are released immediately into your electronic medical record. You may view this report before your referring provider. If you have questions, please contact your health care provider. OB ULTRASOUND PAULA by US: 09/20/2024. GA: 33 w, 6 d. Single. Comparison: Ultrasound 05/02/2024 (71 images). INDICATION: Follow-up growth. TECHNIQUE: Real time grayscale imaging of the fetus was performed. Transabdominal. CERVIX: Not visualized. POSITIONING: Breech. FRANKLIN: 29.7 cm. AMNIOTIC FLUID: 9.1 cm. SDP (N: greater than 2 x 1 cm) PLACENTA: Technique: Transabdominal. PLACENTA POSITION: Anterior, right wall. DOPPLER: heart rate: 143 bpm. BIOMETRY: BPD: 8.8 cm. 35 w, 4 d, 88 percent. HC: 32.4 cm. 36 w, 5 d, 84 percent. AC: 31.0 cm. 35 w, 0 d, 83 percent. FL: 6.5 cm. 33 w, 2 d, 25 percent. FL/AC ratio: 20.78 percent. HC/AC ratio: 1.05. EFW: 2508 g. Weight: 5 lbs, 8 oz. age by this US: 35 w, 1 d. PAULA by this US: 09/11/2024. Percentile by PAULA: 71 percent. IMPRESSION: 1. Sonographic gestational age 35 weeks 1 day and sonographic due date 09/11/2024. Sonographic age is 9 days ahead of the clinical age. 2. Estimated weight 71st percentile. Abdominal circumference 83rd percentile. 3. Amniotic fluid single deepest pocket 9.1 cm. FRANKLIN 26.7 cm. Antwon Navarro M.D. Diagnostic Radiologist [email or web address] SUBHA/baudilio astudillo/Dictated by: Antwon Navarro MD @ 08/08/2024 3:59:00 PM (Electronically Signed)
== END 2024-08-08 13:25 | disposition home or self-care (01) ==
LOC: US 13:26
PROVIDERS: Visit Provider Advanced Practice Midwife
DX: O99.323 Drug use complicating pregnancy, third trimester (principal); F12.90 Cannabis use, unspecified, uncomplicated; Z3A.33 33 weeks gestation of pregnancy
CPT/HCPCS: 76816

== ENCOUNTER 2024-08-22 13:30 | Outpatient (CLI) | payer BC, SELFPAY ==
--- NOTE | 2024-08-22 13:45 | CRLHL7_ITS ---
For Patients: As a result of the Cures Act, medical imaging exams and procedure reports are released immediately into your electronic medical record. You may view this report before your referring provider. If you have questions, please contact your health care provider. OB ULTRASOUND PAULA by US: 09/20/2024. GA: 35 w, 6 d. Single. INDICATION: Polyhydramnios. TECHNIQUE: Real time grayscale imaging of the fetus was performed. Transabdominal. CERVIX: Not visualized. POSITIONING: Vertex. AMNIOTIC FLUID: FRANKLIN: 22.1 cm. 8.9 cm. SDP (N: greater than 2 x 1 cm) PLACENTA: Technique: Transabdominal. PLACENTA POSITION: Anterior. DOPPLER: heart rate: 142 bpm. BIOMETRY: BPD: 9.2 cm. 37 w, 2 d, 90 percent. HC: 33.1 cm. 37 w, 5 d, 66 percent. AC: 32.2 cm. 36 w, 1 d, 67 percent. FL: 6.7 cm. 34 w, 4 d, 16 percent. FL/AC ratio: 20.91 percent. HC/AC ratio: 1.03. EFW: 2827 g. Weight: 6 lbs, 4 oz. age by this US: 36 w, 3 d. PAULA by this US: 09/16/2024. Percentile by PAULA: 55 percent. IMPRESSION: 1. Single living intrauterine measuring 36 weeks 3 days and sonographic due date 09/16/2024. Sonographic age is 4 days ahead of clinical age. 2. Estimated weight 55th percentile. Abdominal circumference 67th percentile. 3. Single deepest pocket amniotic fluid 8.9 cm. FRANKLIN 22.1 cm. Antwon Navarro M.D. Diagnostic Radiologist [email or web address] SUBHA/baudilio astudillo/Dictated by: Antwon Navarro MD @ 08/22/2024 2:17:00 PM (Electronically Signed)
== END 2024-08-22 13:31 | disposition home or self-care (01) ==
LOC: US 13:30
PROVIDERS: Visit Provider Midwife
DX: O40.3XX0 Polyhydramnios, third trimester, not applicable or unspecified (principal); Z3A.36 36 weeks gestation of pregnancy
CPT/HCPCS: 76816

== ENCOUNTER 2024-08-22 14:42 | Outpatient (CLI) | payer BC, SELFPAY ==
[2024-08-23 10:38] LABS: Strep B DNA Probe POSITIVE (Negative)
[2024-08-23 10:39] LABS: Strep B Susceptibility Needed? No
== END 2024-08-22 14:43 | disposition home or self-care (01) ==
LOC: NFLDREF 14:43
PROVIDERS: Visit Provider Advanced Practice Midwife
DX: Z34.93 Encounter for supervision of normal pregnancy, unspecified, third trimester (principal); Z3A.35 35 weeks gestation of pregnancy
CPT/HCPCS: 87081; 87653

== ENCOUNTER 2024-09-06 15:50 | Outpatient (CLI) | payer BC, SELFPAY ==
--- NOTE | 2024-09-06 16:00 | CRLHL7_ITS ---
For Patients: As a result of the Cures Act, medical imaging exams and procedure reports are released immediately into your electronic medical record. You may view this report before your referring provider. If you have questions, please contact your health care provider. OB ULTRASOUND FOLLOW-UP, 09/06/2024 CLINICAL HISTORY: Polyhydramnios. TECHNIQUE: Ultrasound OB pelvis transabdominal. Real-time grayscale imaging of the pelvis was performed.? FINDINGS: PAULA by LMP: 09/20/2024. GA: 38 weeks 0 days. Gestation: Single. CERVIX: Not visualized. POSITIONING: Vertex. AMNIOTIC FLUID: 16.4 cm FRANKLIN. 6.3 cm SDP. PLACENTA: Technique: TA. Placenta Position: Anterior. DOPPLERS: Heart Rate: 141 bpm. BIOMETRY: BPD: 9.4 cm, 28 weeks 1 day. 76.6% HC: 35.5 cm, 41 weeks 3 days. 95.0% AC: 35.8 cm, 39 weeks 5 days. 95.9% FL: 7.1 cm, 36 weeks 4 days. 17.9% FL/AC Ratio: 19.92% HC/AC Ratio: 0.94. EFW: 3666 grams, 8 lb 1 oz. Age by this US: 39 weeks 0 days. PAULA by this US: 09/13/2024. Percentile by PAULA: 85.2% IMPRESSION: 1. Sonographic gestational age 39 weeks 0 days and sonographic due date 09/13/2024. Sonographic age 1 week ahead of the clinical age. 2. Estimated weight 85th percentile. Abdominal circumference 96th percentile. Antwon Navarro M.D. Diagnostic Radiologist [email or web address] Transcribed: 10:51 am DW/Dictated by: Antwon Navarro MD @ 09/07/2024 9:12:00 AM (Electronically Signed)
== END 2024-09-06 15:51 | disposition home or self-care (01) ==
LOC: US 15:51
PROVIDERS: Visit Provider Midwife
DX: O40.3XX0 Polyhydramnios, third trimester, not applicable or unspecified (principal); O36.63X0 Maternal care for excessive fetal growth, third trimester, not applicable or unspecified; Z3A.38 38 weeks gestation of pregnancy
CPT/HCPCS: 76816

== ENCOUNTER 2024-09-19 10:47 | Outpatient (CLI) | payer BC, SELFPAY ==
[2024-09-19 10:50] VITALS: PULSE 95; O2SAT 96
[2024-09-19 10:55] VITALS: BP 122/74; PULSE 88
[2024-09-19 11:25] LABS: Amnisure Rom* Negative
[2024-09-19 11:29] LABS: Amphetamine Screen Urine Negative (Negative); Barbiturate Screen Urine Negative (Negative); Benzodiazepines Screen Urine Negative (Negative); Cannabinoid Screen Urine Negative (Negative); Cocaine Screen Urine Negative (Negative); Methadone Screen Urine Negative (Negative); Methamphetamines Screen Urine Negative (Negative); Opiate Screen Urine Negative (Negative); Oxycodone Screen Urine Negative (Negative); Phencyclidine Screen Urine Negative (Negative); Tricyclic Antidepressant Urine Negative (Negative)
[2024-09-19 11:38] VITALS: RESP 18; TEMP 37.1
--- NOTE | 2024-09-19 11:57 | PC.OBNST ---
NST Note NST Note Start: 09/19/24 10:35 Freq: ONCE Status: Active Protocol: Document 09/19/24 11:56 NENA (Rec: 09/19/24 11:57 NENA [id number]) NST Note 2 Para (# of births) 1 EDC 09/20/24 Gestational Age In 39 Weeks & 6 Days Weeks & Days Patient Presented Leaking fluid with Complaint(s) of Reactive Yes Appropriate for Yes Gestational Age RAFA Newton Date 09/19/24 Reactive Yes Appropriate for Yes Gestational Age RAFA Balbuena Date 09/19/24 OB NST charge Yes Complete NST Note Yes via Write Note The provider's electronic signature indicates the NST is reactive/appropriate for gestational age. *Note to provider: If an addendum is required, open the patient's chart and click on the note under the Nurse/Allied Health tab.
== END 2024-09-19 11:52 | disposition home or self-care (01) ==
LOC: OB OUT 10:47 → OB 10:48
PROVIDERS: Visit Provider Advanced Practice Midwife
DX: O47.1 False labor at or after 37 completed weeks of gestation (principal); Z3A.39 39 weeks gestation of pregnancy
CPT/HCPCS: 59025; 80306; 84112; G0463

== ENCOUNTER 2024-09-30 07:04 | Outpatient (CLI) | payer BC, SELFPAY ==
--- NOTE | 2024-09-30 07:15 | CRLHL7_ITS ---
For Patients: As a result of the Century Cures Act, medical imaging exams and procedure reports are released immediately into your electronic medical record. You may view this report before your referring provider. If you have questions, please contact your health care provider. INDICATION: Post term. TECHNIQUE: Ultrasound OB pelvis transabdominal. Real-time nieto-scale imaging of the fetus was performed without stress testing. COMPARISON: Ultrasound August 2024 FINDINGS: heart rate: Regular, 98-134 bpm. position: Cephalic. Amniotic fluid volume single deepest pocket 6.6 cm, 2/2. motion 2/2. tone 2/2. breathing movements 2/2. Umbilical artery S/D ratio: Not measured. IMPRESSION: 1. Single viable intrauterine with a biophysical profile 8/8. 2. Heart rate dropped to 98, prelim findings were given to on-call provider Dr. Hang Juarez by film laboratory technician at the time of scanning. Dictated by Evie Garcia MD @ 09/30/2024 7:37:52 AM (Electronically Signed)
== END 2024-09-30 07:05 | disposition home or self-care (01) ==
LOC: US 07:04
PROVIDERS: Visit Provider Midwife
DX: O48.0 Post-term pregnancy (principal)
CPT/HCPCS: 76819

== ENCOUNTER 2024-09-30 18:15 | Inpatient (IN) | payer BC, SELFPAY ==
[2024-09-30] VITALS (17 sets, daily range): BP systolic 121–143; BP diastolic 75–94; PULSE 86–108; TEMP 36.6–36.8; O2SAT 96
--- NOTE | 2024-09-30 08:07 | P.LDBA_ITS ---
Subjective History of Present Illness Time Seen by Provider: 08:30 Date Seen: 09/30/24 Narrative: Elsy is 23 year old at 41.3 weeks gestation being admitted to Labor and Delivery for FHR in the 90's at her BPP. She was scheduled to be seen in clinic for post-date BPP and visit. The result of the BPP were called to Dr. Berry who sent her to labor and delivery for additional monitoring. BPP is 11/25. FHR on arrival to unit was 120's but minimal variability. Patient has been having irregular contractions for the last few days. She was seen on Thursday in clinic and had a reactive NST and a membrane sweep. Her SVE on Thursday was /- 3. She reports having bloody show after her clinical visit and some mucous plug discharge on the days following. She denies any leaking of fluid or bleeding. She endorses active movement. Her full history and physical was dictated by Chacho Capellan CNM. Please see this for details. Specific Issues/Plans Partner: Alphonso, Son: Isabel, It is a girl! [place] H&P: Chacho Capellan CNM on 08/30/24 # Mild polyhydramnios, RESOLVED at 35.6 weeks dx 08/08/24 (33 weeks), FRANKLIN 29.7, SDP 9.1. FRANKLIN every 2 weeks starting at time of diagnosis, 33.6 weeks Growth US every 4 weeks 34 weeks: EFW 71%ile 36 weeks: EFW 55%ile, was not ordered but completed; FRANKLIN 22.1 (SDP was 8.9, not poly by FRANKLIN), will keep FRANKLIN check in two weeks to confirm Recommend delivery: 39 0/7-40 6/7 weeks? # marijuana use in + UDS at NOB UDS at 28w: negative Growth ultrasound at 28 (not done) and 34 weeks- EFW 71% # history of preeclampsia 81 mg aspirin starting at 12 weeks Baseline pre E labs:normal, pr/cr ratio: .06 24 hr urine for protein: 140mg # history of vaping, pre # anxiety, declined treatment or therapy 11 weeks: Doing well without treatment # rubella nonimmune MMR #eccentric cord insertion, 2.2 cm from placenta edge #GBS positive Recommended antibiotics in labor, ok with Imagin01/22/24-Intrauterine gestational sac measuring 5 weeks 4 days without pole or yolk sac. Follow-up in 2 weeks recommended. 02/08/24-1. Single viable intrauterine . 2. 7 weeks 6 days gestation by today???s measurements. 05/02/2024-Normal OB ultrasound exam with concordance of clinical and sonographic dating. No intrinsic abnormalities noted on anatomic survey. 08/08/2024-New onset poly noted on growth US today, 71%EFW. FRANKLIN 29.7. SDP 9.1. Will repeat FRANKLIN at in 2 weeks, Growth in 4wks 08/22/24-1. Single living intrauterine measuring 36 weeks 3 days and sonographic due date 09/16/2024. Sonographic age is 4 days ahead of clinical age. 2. Estimated weight 55th percentile. Abdominal circumf erence 67th percentile. 3. Single deepest pocket amniotic fluid 8.9 cm. FRANKLIN 22.1 cm. 09/06/2024: IMPRESSION: 1. Sonographic gestational age 39 weeks 0 days and sonographic due date 09/13/2024. Sonographic age 1 week ahead of the clinical age. 2. Estimated weight 85th percentile. Abdominal circumference 96th percentile. 3. FRANKLIN 16.4. Vaccinations: COVID: Declined Flu: Declined Tdap: Declined RSV: N/A 32 week mental health: [] Last pap: 08/08/21 OB - Problem Based A/P Additional Plan (1) Encounter for induction of labor: Status: Acute (2) heart rate/rhythm abnormality affecting management of mother: Status: Acute (3) Post term , 41 weeks: Status: Acute (4) History of pre-eclampsia in prior , currently : Status: Acute Plan ASSESSMENT:? 23 yo at 41.3 weeks gestation? complicated by:?Mild polyhydramnios, RESOLVED; THC use; hx of pre-e; hx of vaping; anxiety; rubella non-immune Labor type: Induced, Early labor? Category 1 FHR pattern. Labor complicated by: ? GBS positive? ? PLAN:? 1. Admit to inpatient. Discussed recommendation of IOL for concern of FHR of 90's on US and post-term . Reviewed risk/benefits of IOL and timing considering FHR was abnormal on ultrasound. Reassurance provided that FHR was normal on admission and BPP was 8/8. We discussed IOL methods including cytotec, cook, pitocin, and/or AROM. Would avoid use of cyctec due to potential concern of FHR and the inability to removed once placed. She agrees with this. She prefers to avoid pitocin if needed but is aware of it's use if needed. Plan AROM for IOL and will start pitocin 6-12 hours after depending on labor status. She is GBS +, plan to delay AROM until 2 hours after initiation of antibiotics for GBS prophylaxis. All questions answered. 2. Routine intrapartum cares as ordered. 3. Monitoring per policy, continuous with initial concern of FHR. If tracing remains reactive for an extended period, we could consider intermittent monitoring.? 4. Planning unmedicated . Desires water . Consent signed. Hep C negative and two negative UDS in clinic. Candidate for analgesia of choice, if desired. 5. Patient encouraged to reposition and ambulate to promote physiologic labor and .? 6. GBS prophylaxis initiated for GBS positive status. Will treat with antibiotics per protocol. 7. Anticipate ? Delivery/Labor/Induction Plan Induction method: AROM OB Exam Physical Exam Narrative: Vitals Reviewed Constitutional:? Alert and oriented x3 HEENT:? Normocephalic, atraumatic Neck:? Supple Lungs:? Clear to auscultation bilaterally Heart:? Regular rate and rhythm, no murmur, rub or gallop Abdomen:? Soft, nontender, and gravid. Vertex by Don's, confirmed with cervical exam. Extremities:? No edema or erythema Cervix: 2 cm/70%/-2 station/vertex NST: 135 bpm/moderate variability/15x15 accelerations/no decelerations/contractions occasionally Detailed Labor and Delivery Exam Patient Gravid: yes
[2024-09-30 08:29] LABS: Basophils Absolute Auto 0.05 K/uL (0.00-0.30); Basophils Percent Auto 0.6 % (0.0-3.0); Eosinophils Absolute Auto 0.12 K/uL (0.00-0.50); Eosinophils Percent Auto 1.5 % (0.0-7.0); Hematocrit 36.4 % (33.0-51.0); Hemoglobin* 12.2 gm/dL (12.0-16.0); Immature Granulocytes Abs Auto 0.06 K/uL (0.00-0.30); Immature Granulocytes Pct Auto 0.7 %; Lymphocytes Percent Auto 17.7 % (20-44); Mean Corpuscular HGB Conc 34 gm/dL (32-36); Mean Corpuscular Hemoglobin 31 pg (26-34); Mean Corpuscular Volume 92 fL (80-100); Monocytes Percent Auto 8.1 % (0.0-11.0); Neutrophils Absolute Auto 5.81 K/uL (1.7-7.0); Neutrophils Percent Auto 71.4 % (42.0-72.0); Platelet Count* 187 K/uL (140-440); Red Blood Count 3.96 m/uL (4.00-5.20); White Blood Count* 8.14 K/uL (4.50-11.00)
[2024-09-30 08:31] LABS: Slide Review Reflex No
[2024-09-30] MEDS: LACTATED RINGERS 1000 ML 1,000 ML IV (08:32)
[2024-09-30] MEDS: AMPICILLIN 2 GM in 0.9 % SODIUM CHLORIDE Mini-bag 100 ML IVPB (09:07)
[2024-09-30 10:30] LABS: Amphetamine Screen Urine Negative (Negative); Barbiturate Screen Urine Negative (Negative); Benzodiazepines Screen Urine Negative (Negative); Cannabinoid Screen Urine Negative (Negative); Cocaine Screen Urine Negative (Negative); Methadone Screen Urine Negative (Negative); Methamphetamines Screen Urine Negative (Negative); Opiate Screen Urine Negative (Negative); Oxycodone Screen Urine Negative (Negative); Phencyclidine Screen Urine Negative (Negative); Tricyclic Antidepressant Urine Negative (Negative)
--- NOTE | 2024-09-30 11:31 | PC.SOCIAL ---
creative services specialist consult: coal chute worker received a referral on the pt for substance abuse screening. coal chute worker reviewed pt's toxicology report and saw no positive results for any substances. Pt's toxicology was positive for THC on 02/08/2024(most likely around the time she found out she was ), but has tested negative for all substances since on 06/28/2024, 09/19/2024 and 09/30/2024. coal chute worker will keep an eye on the urine and cord blood results for the baby when the baby is born. Social work to follow-up as needed.
[2024-09-30] MEDS: AMPICILLIN 1 GM in 0.9 % SODIUM CHLORIDE Mini-bag 100 ML IVPB ×3 (13:15→21:04)
--- NOTE | 2024-09-30 18:23 | PM.OBPNL ---
Subjective Time Seen by Provider: 12:00 Date Seen: 09/30/24 Narrative: Elsy Lama is 23 year old at 41.3 weeks gestation being admitted to Labor and Delivery for post-dates and FHR concerns prior to admission. IOL started for these concerns. Patient has received 1 dose of antiobitics around 0907 this morning. We had discussed AROM 2+ hours after antibiotics for GBS + status. She is agreeable with plan. She has noted more irregular contractions since exam earlier. She is supported in labor by her partner, Alphonso. Objective Exam: Objective: Constitutional: Alert and oriented x3, no distress, coping well Vital signs stable, see nurse documentation Abdomen: gravid, contractions palpate mild with contractions and soft between Cervix: 2 cm/70%/-2 station/vertex; AROM of clear fluid NST: 135 bpm/moderate variability/15x15 accelerations/no decelerations/contractions occasionally Vital Signs: Last Vital Signs Temp 98.1 F 09/30/24 15:43 Pulse 88 09/30/24 15:59 BP 131/77 09/30/24 15:59 Pulse Ox 96 09/30/24 13:15 Plan Plan: ASSESSMENT:? 23 yo at 41.3 weeks gestation? complicated by:?Mild polyhydramnios, RESOLVED; THC use; hx of pre-e; hx of vaping; anxiety; rubella non-immune Labor type: Induced, Early labor? Category 1 FHR pattern. Intermittent periods of Category II that resolve with position changes. Labor complicated by: FHR 90's in US this am, reassuring since admission GBS positive? ? PLAN:? 1. AROM for clear fluid. Plan to continue with expectant management and consider IV pitocin at 6-12 hours post AROM if labor has not progressed on it's own. Patient agrees with plan. 2. Routine intrapartum cares as ordered. 3. Monitoring per policy, continuous with initial concern of FHR. If tracing remains reactive for an extended period, we could consider intermittent monitoring.? 4. Planning unmedicated . Desires water . Consent signed. Hep C negative and two negative UDS in clinic. Candidate for analgesia of choice, if desired. 5. Patient encouraged to reposition and ambulate to promote physiologic labor and .? 6. GBS prophylaxis initiated for GBS positive status. Will treat with antibiotics per protocol. 7. Anticipate ?
--- NOTE | 2024-09-30 22:39 | W.PM.OBVAGDE ---
OB Procedure Vag Delivery Mother Details Mother Details: The patient is a 23 year-old, 2, now Para 2, admitted on 09/30/24 at 41.3 weeks gestation. : 2 Para: 2 Weeks Gestation: 41.3 Additional Details Amniotic Membrane Status: AROM Amniotic Membrane Rupture Date: 09/30/24 Amniotic Membrane Rupture Time: 11:52 Amniotic Membrane Fluid Description: Clear Analgesia/Anesthesia Type: None Waterbirth: Yes Pitcoin: No (Expectant management) Intrapartal Events: Labor Induction and Precipitous Labor <3 Hrs Induction Method: AROM Labor Onset: 20:00 Complete: 21:30 Pushin:30 Heart: heart tones during second stage were reassuring with moderate variability and accelerations. The last 10 minutes prior to delivery were difficult to continuously trace due to maternal position and pushing efforts. Delivery Details Delivery Date: 09/30/24 Delivery Time: 22:03 Route of delivery: Infant Gender: Female Viability: Alive; Heart Rate Present Position at Delivery: OA Delivery Details: Patient was admitted for induction of labor for post-dates with heart rate concerns in her BPP this morning. She was AROM'd for clear fluid at 1152 for induction after receiving her 1st dose of antibiotics for GBS prophylaxis. She progressed normally after this, feeling more uncomfortable with contractions around 1800. She requested to enter the tub around 2000. Patient was assumed complete with pushing at 2130. of a viable female at 2203 while kneeling in the tub. Vertex delivered OA. No nuchal cord or shoulder. Body dystocia, resolved with gentle traction and maternal repositioning, delivery of head to rest of the body was 40 seconds. and without incident. passed between mothers legs and brought up by RN and mother to her abdomen with a weak cry, stimulated for vigorous cry. Cord was clamped and cut at > 5 minutes. APGARS were 7 at one minute and 8 at five minutes respectively. Elizabeth was taken to the warmer while mother was assisted out of the tub to the bed. Elizabeth was placed skin to skin with mom. Mouth was bulb suctioned. Intact placenta with a 3 vessel cord delivered spontaneously at 2222. Fundus firm. Shallow perineal 2nd degree identified; with shared decision making, decision was made to not repair as it was hemostatic and well approximated. QBL 100 cc. Mother and baby stable; mother plans to breastfeed. weight pending. 1 Minute Interval Total Score: 7 5 Minute Interval Total Score: 8 Additional Details Shoulder Dystocia: No Placenta Delivery Time: 22:22 Placental Delivery Description: Spontaneous Procedure Done: Global Blood Loss: 100 Laceration: Perineal - 2nd Degree (Shallow, no repair) Blood Loss Measurement Type: QBL Bakri Used: No Cord Vessel Description: 3 Vessels Event Summary Status: Mother and were stable after delivery. Disposition: floor
[2024-09-30] MEDS: IBUPROFEN 600 MG TABLET PO (23:02)
[2024-09-30 23:08] LABS: Hematocrit 35.9 % (33.0-51.0); Hemoglobin* 12.1 gm/dL (12.0-16.0); Mean Corpuscular HGB Conc 34 gm/dL (32-36); Mean Corpuscular Hemoglobin 31 pg (26-34); Mean Corpuscular Volume 92 fL (80-100); Platelet Count* 182 K/uL (140-440); White Blood Count* 17.67 K/uL (4.50-11.00)
[2024-09-30 23:28] LABS: Slide Review Reflex No
[2024-09-30 23:34] LABS: Alanine Aminotransferase* 19 U/L (4-35); Aspartate Amino Transferase* 32 U/L (12-35); Blood Urea Nitrogen* 10 mg/dL (5-24); Creatinine* 0.4 mg/dL (0.5-1.5); Estimated Glomerular Filt Rate 142 ml/min
[2024-10-01] VITALS (7 sets, daily range): BP systolic 115–135; BP diastolic 77–88; PULSE 63–105; RESP 15–16; TEMP 36.6–37; O2SAT 94–97
[2024-10-01] MEDS: IBUPROFEN 600 MG TABLET PO ×3 (05:35→21:27)
--- NOTE | 2024-10-01 08:02 | P.DS_ITS ---
DS: Providers Provider Date Seen: 10/01/24 Date of admission: 09/30/24 18:15 Primary care physician: Not a Local Provider Admitting Clinician: Minoo Ye CNM Consults: 09/30/24 10:07 Consult to Game Trapper [CONS] Routine Comment: Reason for Consult:: Substance Abuse Screening Attending Physician on discharge: Minoo Ye CNM Date of Discharge: 10/01/24 DS: Diagnosis Discharge Diagnosis (1) Gestational hypertension: Status: Acute (2) Lactating mother: Status: Acute (3) care following vaginal delivery: Status: Acute (4) Anxiety: Status: Acute (5) Depression: Status: Acute Exam Narrative: Exam Narrative: GENERAL APPEARANCE:? normal affect, alert, no distress? MOOD:? appropriate? CHEST:? clear to auscultation and percussion? HEART:? regular rate and rhythm? ABDOMEN:? soft, non-tender the uterine fundus is U/2 and slightly to the right and is appropriate for the stage of recovery. Encouraged her to urinate.? PERINEUM:? mild edema of the perineum, there is a 2nd degree laceration that is healing well.? EXTREMITIES:? normal and no edema? Const: Vital Signs, click to edit/add: Vital Signs - 24 hr 09/30/24 08:27 09/30/24 08:27 09/30/24 09:02 Temperature 98.1 F Pulse Rate 86 94 Pulse Rate [Pulse Oximeter] Respiratory Rate Blood Pressure 137/94 H 137/93 H Blood Pressure [Le ft Arm] Pulse Oximetry Oxygen Delivery Me thod 09/30/24 09:18 09/30/24 13:10 09/30/24 13:15 Temperature Pulse Rate 108 H Pulse Rate [Pulse Oximeter] Respiratory Rate Blood Pressure 133/82 Blood Pressure [Le ft Arm] Pulse Oximetry 96 96 Oxygen Delivery Me thod 09/30/24 13:19 09/30/24 13:19 09/30/24 14:46 Temperature 98.3 F 97.8 F Pulse Rate 95 Pulse Rate [Pulse Oximeter] Respiratory Rate Blood Pressure 130/83 Blood Pressure [Le ft Arm] Pulse Oximetry Oxygen Delivery Me thod 09/30/24 15:43 09/30/24 15:59 09/30/24 20:28 Temperature 98.1 F Pulse Rate 88 96 Pulse Rate [Pulse Oximeter] Respiratory Rate Blood Pressure 131/77 141/88 H Blood Pressure [Le ft Arm] Pulse Oximetry Oxygen Delivery Me thod 09/30/24 20:28 09/30/24 20:48 09/30/24 22:22 Temperature 98 F Pulse Rate 86 100 Pulse Rate [Pulse Oximeter] Respiratory Rate Blood Pressure 134/87 138/85 Blood Pressure [Le ft Arm] Pulse Oximetry Oxygen Delivery Me thod 09/30/24 22:37 09/30/24 22:52 09/30/24 23:07 Temperature Pulse Rate 98 99 88 Pulse Rate [Pulse Oximeter] Respiratory Rate Blood Pressure 138/82 137/78 143/83 H Blood Pressure [Le ft Arm] Pulse Oximetry Oxygen Delivery Me thod 09/30/24 23:42 09/30/24 23:52 10/01/24 00:08 Temperature Pulse Rate 99 94 101 H Pulse Rate [Pulse Oximeter] Respiratory Rate Blood Pressure 121/75 126/85 135/88 Blood Pressure [Le ft Arm] Pulse Oximetry Oxygen Delivery Me thod 10/01/24 02:16 10/01/24 05:36 Temperature 98.6 F 97.9 F Pulse Rate Pulse Rate [Pulse Oximeter] 80 83 Respiratory Rate 15 16 Blood Pressure Blood Pressure [Le ft Arm] 130/85 115/78 Pulse Oximetry 97 97 Oxygen Delivery Me thod Room Air Room Air OB - DS: Summary Hospital Course Hospital Course: Daina is a 23 y.o. G 2 P 2 who was admitted to L & D for IOL for low FHR noted on BPP in clinic. ?She had a NVD that was uncomplicated. The patient feels well. ?The pain is well controlled with current medications. ?She has no new complaints. ?She is breast feeding and reports things are going very well. the patient has done well.? Vitals have been stable.? She has remained afebrile.? Has a good appetite, is tolerating a general diet. ?She is voiding without difficulty.? She is not yet reporting passing gas and has not had a bowel movement.?Encouraged ambulation and if no gas by 24 hours to report to this to the RN. She is ambulating and denies any dizziness.? Has small amount of rubra lochia. She is planning partner vasectomy for prevention and will use condoms until he returns for f/u testing. Problems: [] Peripartum Data Laceration description: Perineal - 2nd Degree Episiotomy description: None complications: none [place] Gender: Female Infant Discharge Plan: Home Status at Discharge Functional status at discharge: independent ambulation Overall status at discharge: patient is progressing back to baseline Time Spent with Patient Time attestation: Total time spent providing and/or coordinating discharge services: Discharge Plan Discharge Disposition: Home, Self-Care Date of Admission: 09/30/24 18:15 Attending Provider on Discharge: Eloisa Roblero Primary Care Provider: Provider,Not a Local Condition: Stable Anticipated Discharge Date/Time: 10/01/24 23:00 Discharge Medications: New docusate sodium 100 mg Capsule 100 mg PO DAILY Qty: 100 0RF Rx Instructions: Take 1-2 tablets daily as needed for constipation. ibuprofen 600 mg Tablet 600 mg PO Q6H PRNQty: 90 0RF Continued [id number] 3 fatty no.1 27-1-300 mg capsule 1 cap PO DAILY Discharge Orders: Discharge Order (Routine); Ordered 10/01/24 Ordered By: Eloisa Roblero Patient Education: OB High Blood Pressure DC, OB Vaginal/Breast Feeding Additional Instructions: Discharge instructions were reviewed with the patient including signs and symptoms of infection and home going medications.? Lifting Restrictions: 20 pounds for 6? weeks? ?? Do not drive while taking narcotic pain meds.? Off Work or School for 6 weeks.? ?? Symptoms to report to doctor:? -Bleeding that saturates more than one pad per hour? -Passing clots larger than the size of a golf ball? -Pain not relieved by prescribed medication? -Fever above 100.4 degrees Fahrenheit? -A foul vaginal odor? -Difficulty in emotions, mood and functions? -Thoughts of hurting yourself and/or ? -Painful, reddened area in your breast? -Any drainage, redness or tenderness in your IV/epidural site? -Severe headache that doesn't improve after taking medications? -Changes in vision, including temporary loss of vision, blurred vision, and/or light sensitivity? -Upper abdominal pain (usually under ribs on the right side)? -Decrease in urination or painful, frequent urinating? -Chest pain? -Shortness of breath? -Tenderness or pain with redness and/swelling in the calf(s) of your leg? ?? Blood pressure check in 3-5 days. Follow Up in clinic in 2 and 6 weeks.? ?? consultation services are available to all mothers and babies for the first year after delivery.? To make an appointment, please call [phone].? Activity Level: Activity as Tolerated Discharge Diet: Regular Follow Up Appointments: [facility] [Provider Group] Provider,Not a Local [Primary Care Provider, Family Practice] Forms: MyHealth Info Instructions
[2024-10-01] MEDS: DOCUSATE SODIUM 100 MG CAPSULE PO (12:47)
[2024-10-01 19:17] LABS: Rapid Plasma Reagin (RPR) Non Reactive (Non Reactive)
[2024-10-02 06:31] VITALS: BP 125/83; PULSE 95; RESP 16; TEMP 37; O2SAT 97
--- NOTE | 2024-10-02 08:52 | P.DS_ITS ---
DS: Providers Provider Date Seen: 10/02/24 Date of admission: 09/30/24 18:15 Primary care physician: Not a Local Provider Admitting Clinician: Minoo Ye CNM Consults: 09/30/24 10:07 Consult to Hospice Bereavement Coordinator [CONS] Routine Comment: Reason for Consult:: Substance Abuse Screening Attending Physician on discharge: Minoo Ye CNM Date of Discharge: 10/02/24 DS: Diagnosis Discharge Diagnosis (1) care following vaginal delivery: Status: Acute (2) Lactating mother: Status: Acute (3) Gestational hypertension: Status: Acute (4) Anxiety: Status: Acute (5) Depression: Status: Acute Exam Narrative: Exam Narrative: GENERAL APPEARANCE:? normal affect, alert, no distress? MOOD:? appropriate? CHEST:? clear to auscultation and percussion? HEART:? regular rate and rhythm? ABDOMEN:? soft, non-tender the uterine fundus is U/2 and is appropriate for the stage of recovery.? PERINEUM:? mild edema of the perineum, there is a 2nd degree laceration that is healing well.? EXTREMITIES:? normal and no edema? Const: Vital Signs, click to edit/add: Vital Signs - 24 hr 10/01/24 12:27 10/01/24 16:36 10/01/24 21:20 Temperature 98.3 F 98.3 F Pulse Rate [Pulse Oximeter] 105 H 94 63 Respiratory Rate 16 16 16 Blood Pressure [Le ft Arm] 120/78 117/77 124/82 Pulse Oximetry 94 96 97 Oxygen Delivery Me thod Room Air Room Air Room Air 10/02/24 06:31 Temperature 98.6 F Pulse Rate [Pulse Oximeter] 95 Respiratory Rate 16 Blood Pressure [Le ft Arm] 125/83 Pulse Oximetry 97 Oxygen Delivery Me thod Room Air Documenting provider has reviewed patient's vital signs: yes OB - DS: Summary Hospital Course Hospital Course: Daina is a 23 y.o. G 2 P 2 who was admitted to L & D for IOL for FHR abnormality on BPP. ?She had a NVD that was complicated by gestational hypertension. The patient feels well. ?The pain is well controlled with current medications. ?She has no new complaints. ?She is breast feeding and reports things are going well. the patient has done well.? Vitals have been stable.? She has remained afebrile.? Has a good appetite, is tolerating a general diet. ?She is voiding without difficulty.? She is passing gas and has not had a bowel movement.? She is ambulating and denies any dizziness.? Has small amount of rubra lochia. She is planning condoms/partner vasectomy for prevention. She will be given and instructed on use of a blood pressure cuff on discharge to monitor blood pressures at home. Problems: gestational hypertension Peripartum Data delivery method: Vaginal Laceration description: Perineal - 2nd Degree Episiotomy description: None complications: none Infant Gender: Female Discharge Plan: Home Status at Discharge Functional status at discharge: independent ambulation Overall status at discharge: patient is progressing back to baseline Time Spent with Patient Time attestation: Total time spent providing and/or coordinating discharge services: Discharge Plan Discharge Disposition: Home, Self-Care Date of Admission: 09/30/24 18:15 Attending Provider on Discharge: Eloisa Roblero Primary Care Provider: Provider,Not a Local Condition: Stable Anticipated Discharge Date/Time: 10/02/24 10:00 Discharge Medications: New docusate sodium 100 mg Capsule 100 mg PO DAILY Qty: 100 0RF Rx Instructions: Take 1-2 tablets daily as needed for constipation. ibuprofen 600 mg Tablet 600 mg PO Q6H PRNQty: 90 0RF Continued [id number] 3 fatty no.1 27-1-300 mg capsule 1 cap PO DAILY Discharge Orders: Discharge Order (Routine); Ordered 10/02/24 Ordered By: Eloisa Roblero Patient Education: OB High Blood Pressure DC, OB Vaginal/Breast Feeding Additional Instructions: Discharge instructions were reviewed with the patient including signs and symptoms of infection and home going medications.? Lifting Restrictions: 20 pounds for 6? weeks? ?? Do not drive while taking narcotic pain meds.? Off Work or School for 6 weeks.? ?? Symptoms to report to doctor:? -Bleeding that saturates more than one pad per hour? -Passing clots larger than the size of a golf ball? -Pain not relieved by prescribed medication? -Fever above 100.4 degrees Fahrenheit? -A foul vaginal odor? -Difficulty in emotions, mood and functions? -Thoughts of hurting yourself and/or ? -Painful, reddened area in your breast? -Any drainage, redness or tenderness in your IV/epidural site? -Severe headache that doesn't improve after taking medications? -Changes in vision, including temporary loss of vision, blurred vision, and/or light sensitivity? -Upper abdominal pain (usually under ribs on the right side)? -Decrease in urination or painful, frequent urinating? -Chest pain? -Shortness of breath? -Tenderness or pain with redness and/swelling in the calf(s) of your leg? ?? Blood pressure check in 3-5 days. Follow Up in clinic in 2 and 6 weeks.? ?? consultation services are available to all mothers and babies for the first year after delivery.? To make an appointment, please call [phone].? Activity Level: Activity as Tolerated Discharge Diet: Regular Follow Up Appointments: [facility] [Provider Group] Provider,Not a Local [Primary Care Provider, Family Practice] Forms: MyHealth Info Instructions
== END 2024-10-02 12:42 | disposition home or self-care (01) | DRG 560 ==
LOC: OB CLI 22:14 → OB 22:14
PROVIDERS: Admitting Provider Advanced Practice Midwife; Visit Provider Advanced Practice Midwife
DX: O48.0 Post-term pregnancy (principal); O76 Abnormality in fetal heart rate and rhythm complicating labor and delivery; O13.4 Gestational [pregnancy-induced] hypertension without significant proteinuria, complicating childbirth; O62.3 Precipitate labor; O99.824 Streptococcus B carrier state complicating childbirth; O70.1 Second degree perineal laceration during delivery; O99.344 Other mental disorders complicating childbirth; F41.9 Anxiety disorder, unspecified; F32.A Depression, unspecified; O99.324 Drug use complicating childbirth; F12.91 Cannabis use, unspecified, in remission; Z37.0 Single live birth; Z3A.41 41 weeks gestation of pregnancy
CPT/HCPCS: 36415; 80306; 82565; 84450; 84460; 84520; 85025; 85027; 86592; 86850; 86900; 86901; G0463; A9270; J0290; J7120

== ENCOUNTER 2024-10-06 22:50 | Emergency (ER) | payer BC, SELFPAY ==
--- OUTSIDE RECORDS SUMMARY | 2016-03-31 04:12 | XMS_ITS | Continuity of Care Document ---
Author Organization [facility] Address [address] [address] [place] [address] Phone Care Team Providers Care Float Nurse Name Role Phone Unavailable Unavailable Unavailable Allergies, Adverse Reactions, Alerts Substance Reaction Status Criticality azithromycin rash(mild) Active No Information clarithromycin Rash(mild) Active No Informatio n Medications Medication Instructions Dosage Effective Dates (start - stop) Status Comments omeprazole 20 mg capsule,delayed release take 1 capsule by oral route 2 times every day 20 MG - Active tramadol 50 mg tablet take 1 tablet by o ral route every day as needed 50 MG - Active Control Pill Oral take 1 tablet by oral route every day - Active hydroxyzine HCl 25 mg tablet take 1 tablet by oral route every day as needed 25 MG - Active Procedures Procedure Date Ugi Endo; W/bx /mx Colonoscopy Flex; W/bx 1/mx Offic Cons New/estab Mod Advance Directives Directive Yes / No Effective Date File Name No Information Encounters Encounter Description Practice Location Reason(s) For Visit Diagnoses Date Provider Providers Copied on Encounter [facility], [address] [address], [place], [place], [id number], [place] tel:[phone] [facility] No Information 6 No Information [facility], [address] [address], [place], [place], [id number], tel:[phone] [facility] No Information 6 No Information [facility], [address] [address], [place], [place], [id number], tel:[phone] [facility] No Information No Information Referring Provider: Leia DENISE, [address] [place], [address]. tel:[phone] Offic Cons New/estab Mod [facility], [address] [address], [place], [place], [id number], tel:[phone] [facility] GI Symptoms or Concerns (chief complaint) Right lower quadrant abdominal pain No Information Referring Provider: Leia DENISE, [address] [place], [address]. tel:[phone] Family History Family Member Type Diagnosis Age At Onset Mother Problem (finding) Alive and well Brother Problem (finding) Alive and well Payers Payer name Insurance type Covered libertarian ID Authoriza tion(s) No Information Social History Type Description Quantity Date Captured Comments Alcohol Use Details Unknown Caffeine Use Details Unknown Tobacco Use Status Smoking Status No Information Sex Female Chief Complaint And Reason For Visit No Information Reason For Referral Reason For Referral No Information History Of Present Illness Encounter Date Complaint History Of Prese nt Illness GI Symptoms or Concerns Alan Bravo is a 15-year-old female with acute onset of right lower quadrant pain. Symptoms started about three weeks ago. She states that worsening factors are moving around walking, taking deep breaths, any type of movement. The onset of the right lower quadrant pain was not associated with diarrhea at that time and in fact she stated that she was on the more constipated side having formed stools about once a day. She did develop fevers of unknown origin up to 102.5. She also has nausea and intermittent nonbloody, nonbilious emesis that usually occurs at nighttime. Starting about one to two days ago, her stools became liquid, watery averaging three to four a day, all are nonbloody, in fact there has been no history of blood in the stools. There are no nocturnal symptoms. At the onset of the right lower quadrant pain, she denies any travel history, any other signs of illness, any antibiotic use, sick contacts or travel history. She denies any dysuria. Her periods are Functional Status Date Functional Assessmen t No Information Instructions Date Instruction Additional Infor christiane Stool studies as ord ered. The patient will be scheduled for an upper endoscopy and colonoscopy if the infectious workup is negative. Follow up after results are back. Related to Right lower quadrant abdominal pain Colonoscopy Colonoscopy Assessments Type Assessment Date No Information Patient Care Teams Name Effective Dates (start - stop) Status Members No Information
--- OUTSIDE RECORDS SUMMARY | 2016-03-31 04:12 | XMS_ITS | Continuity of Care Document ---
Author Organization [facility] Address [address] [address] [place] [address] Phone Care Team Providers Care Crop [place] Name Role Phone Unavailable Unavailable Unavailable Allergies, [...] Diagnoses Date Provider Providers Copied on Encounter [facility], [address] [address], [place], [place], [id number], [place] tel:[phone] [facility] No Information 6 No Information [facility], [address] [address], [place], [place], [id number], tel:[phone] [facility] No Information 6 No Information [facility], [address] [address], [place], [place], [id number], tel:[phone] [facility] No Information No Information Referring Provider: Leia DENISE, [address] [place], [address]. tel:[phone] Offic Cons New/estab Mod [facility], [address] [address], [place], [place], [id number], tel:[phone] [facility] GI Symptoms or Concerns (chief complaint) Right lower quadrant abdominal pain No Information Referring Provider: Leia DENISE, [address] [place], [address]. tel:[phone] Family History Family Member Type Diagnosis Age [...]
[2024-10-06] VITALS (11 sets, daily range): BP systolic 126–146; BP diastolic 93–102; PULSE 65–73; RESP 16; TEMP 36.4; O2SAT 96–98; BMI 29.1
--- NOTE | 2024-10-06 22:58 | ED_ITS ---
HPI - General Adult General Time Seen by Provider: 22:58 Date Seen: 10/06/24 Chief complaint: Post OB/Post- Complication Stated complaint: High BP per OB, 6 days post Time Seen by Provider: 10/06/24 22:58 Source: patient, RN notes reviewed and old records reviewed Mode of arrival: ambulatory Limitations: no limitations History of Present Illness HPI narrative: Daina is a very pleasant 23 y.o. G 2 P 2 who comes to the emergency room for evaluated of elevated blood pressure. She notes a blood pressure reading up to 165 systolic at home and was told to come to be evaluated. She notes that she had high blood pressure during labor delivery and and was instructed to take her blood pressures frequently. Her delivery was 6 days ago, vaginal and induced for IOL for FHR abnormality on BPP. ?She did have preeclampsia during her 1st . Tonight, she notes no headache, visual changes, abdominal pain. She states that when she stands up for long period of time she will sometimes gets dizzy but attributes this to the loss of blood during delivery. 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 Related Data Home Medications ?Medication ?Instructions ?Recorded ?Confirmed [id number] 3 fatty no.1 27 1 cap PO DAILY 02/0710/06/24 mg-1 mg-300 mg capsule Previous Rx's ?Medication ?Instructions ?Recorded docusate sodium 100 mg capsule 100 mg PO DAILY #100 ca ps 10/01/24 ibuprofen 600 mg tablet 600 mg PO Q6H PRN #90 tabs 0 10/01/24 nifedipine 30 mg tablet,extended 30 mg PO DAILY #30 ta bs 10/07/24 release Allergies Allergy/AdvReac Type Severity Reaction Status Date / Time azithromycin Allergy Mild Rash Verified 09/30/24 08:51 clarithromycin Allergy Mild Rash Verified 09/30/24 08:51 Review of Systems Status of ROS: Reports: 10 or more systems reviewed and unremarkable except as noted in History and below [facility] Medical History Post term , 41 weeks ?O48.0 - Post-term (ICD-10) ?Z3A.41 - 41 weeks gestation of (ICD-10) Marijuana use during ?O99.320 - Drug use complicating , unspecified trimester (ICD-10) ?F12.90 - Cannabis use, unspecified, uncomplicated (ICD-10) History of pre-eclampsia in prior , currently ?O09.299 - Supervision of with other poor reproductive or obstetric history, unspecified trimester (ICD-10) Polyhydramnios in third trimester ?O40.3XX0 - Polyhydramnios, third trimester, not applicable or unspecified (ICD-10) heart rate/rhythm abnormality affecting management of mother ?O36.8390 - Maternal care for abnormalities of the heart rate or rhythm, unspecified trimester, not applicable or unspecified (ICD-10) Psychosocial stressors ?Z65.8 - Other specified problems related to psychosocial circumstances (ICD- 10) Engages in vaping ?Z72.89 - Other problems related to lifestyle (ICD-10) anxiety ?O99.345 - Other mental disorders complicating the puerperium (ICD-10) ?F41.8 - Other specified anxiety disorders (ICD-10) Surgical History Status post vaginal delivery No history of previous surgery Social History Narrative: 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 Marital status: engaged. Mandaen/cultural needs: no. Chemical or radiation exposure: no. Pre- tobacco use: Occasional vaping. Pre- alcohol use: no. Current tobacco use: no. Current alcohol use: no. Recreational drug use: marijuana. Dietary restrictions: no. Blood transfusion acceptable in an emergency: yes. PSYCHOSOCIAL HISTORY: History of depression or currently depressed: yes, history. Current or past physical, emotional, or sexual mistreatment: no. Problems that will make it hard to make it to appointments: no What is your current living situation?: I presently have a place to live Problems where you live: no known problems Problems where you live details[place]. In the past 12 months, utilities in danger of being shut off: no In past 12 months, lack of transportation kept you from medical appts, meetings, work, or getting things needed for daily living: no In the past 12 mos, have been you worried that your food would run out before you had money to buy more?: never true In the past 12 mos, the food you bought just didn't last and you didn't have money to buy more?: never true Smoking Status: Former smoker Do you use any of these nicotine containing products: Vaping Products Smokeless tobacco user details: Quit following positive test How often do you have a drink containing alcohol: never AUDIT-C Alcohol total score: 0 Non-prescribed substance use: denies use How often does anyone, including family, friends and others, physically hurt you : never How often does anyone, including family, friends and others, insult or talk down to you: never How often does anyone, including family, friends and others, threaten you with harm: never How often does anyone, including family, friends and others, scream or curse at you: never Exam Narrative: Exam Narrative: Alert and oriented. No acute distress. No photophobia. Mentation and speech is normal. Face is symmetrical. Neck is supple. No lymphadenopathy. Heart with regular rate and rhythm and lungs are clear bilaterally. Abdomen soft nontender, no right upper quadrant tenderness. No lower extremity edema. Moving all extremities normally. Const: Vital Signs, click to edit/add: Vital Signs - 24 hr 10/06/24 22:53 10/06/24 23:04 10/06/24 23:10 Temperature 97.5 F L Pulse Rate 67 67 Pulse Rate [Pulse Oximeter] 67 Respiratory Rate 16 Blood Pressure 141/102 H Blood Pressure [Ri ght Upper Arm] 146/94 H Pulse Oximetry 98 97 97 Oxygen Delivery Me thod Room Air 10/06/24 23:15 10/06/24 23:16 10/06/24 23:30 Temperature Pulse Rate 68 65 67 Pulse Rate [Pulse Oximeter] Respiratory Rate Blood Pressure 142/102 H Blood Pressure [Ri ght Upper Arm] Pulse Oximetry 97 97 96 Oxygen Delivery Me thod 10/06/24 23:31 10/06/24 23:32 10/06/24 23:45 Temperature Pulse Rate 70 73 65 Pulse Rate [Pulse Oximeter] Respiratory Rate Blood Pressure 136/93 H Blood Pressure [Ri ght Upper Arm] Pulse Oximetry 96 97 97 Oxygen Delivery Me thod 10/06/24 23:46 10/06/24 23:47 10/07/24 00:00 Temperature Pulse Rate 68 73 68 Pulse Rate [Pulse Oximeter] Respiratory Rate Blood Pressure 126/99 H Blood Pressure [Ri ght Upper Arm] Pulse Oximetry 97 97 97 Oxygen Delivery Me thod 10/07/24 00:01 10/07/24 00:01 10/07/24 00:01 Temperature Pulse Rate 68 68 68 Pulse Rate [Pulse Oximeter] Respiratory Rate Blood Pressure 136/98 H 136/98 H 136/98 H Blood Pressure [Ri ght Upper Arm] Pulse Oximetry 97 97 97 Oxygen Delivery Me thod Documenting provider has reviewed patient's vital signs: yes Course Course ED Course: Patient is presenting with isolated hypertension . Initial blood pressure here was 146/94. Will do serial blood pressure checks cut check a CBC and comprehensive panel as well as urinalysis. At that point will consult with OBGYN. Reevaluation(s) Reevaluation #1: Patient noted to have a hemoglobin of 10.2 with previous value of 12.1 on September 30. Reevaluation #2: Blood pressures were elevated in the 140s over 100 systolic. Last blood pressure was fairly normal at 126 systolic. Patient continues to be asymptomatic of headache vomiting visual changes abdominal pain lower extremity edema. Consultations Consultation #1: At the pleasure of speaking to supervisor central supply automotive internet sales consultant Dr. OLMOS. At this time she does suggest nifedipine 30 mg daily and a follow-up with OBGYN. Vital Signs Vital signs: Initial Vital Signs Temperature 97.5 F L 10/06/24 22:53 Temperature Source Temporal Artery Scan 10/06/24 22:53 Pulse Rate 67 10/06/24 22:53 Respiratory Rate 16 10/06/24 22:53 Blood Pressure 146/94 H 10/06/24 22:53 Blood Pressure Mean 111 H 10/06/24 22:53 Blood Pressure Position High-Fowlers 10/06/24 22:53 Pulse Oximetry 98 10/06/24 22:53 Oxygen Delivery Method Room Air 10/06/24 22:53 Vital Signs Temperature 97.5 F L 10/06/24 22:53 Pulse Rate 67 10/06/24 22:53 Respiratory Rate 16 10/06/24 22:53 Blood Pressure 146/94 H 10/06/24 22:53 Pulse Oximetry 98 10/06/24 22:53 Oxygen Delivery Method Room Air 10/06/24 22:53 Temperature 97.5 F L 10/06/24 22:53 Pulse Rate 68 10/07/24 00:01 Respiratory Rate 16 10/06/24 22:53 Blood Pressure 136/98 H 10/07/24 00:01 Pulse Oximetry 97 10/07/24 00:01 Oxygen Delivery Method Room Air 10/06/24 22:53 Medical Decision Making MDM Narrative Medical decision making narrative: 1. hypertension-no evidence of the worrisome symptoms to include headache, visual changes, abdominal pain, lower extremity edema. Patient has a creatinine normal at 0.7 with previous value of 0.4. Normal electrolyte panel and LFTs are within normal limits. Urinalysis without evidence of protein urea. After discussion with OBGYN patient will be started on nifedipine 30 mg ER daily. First dose given in the ED tonight with prescription sent to her pharmacy. Patient should return should she develop any worrisome symptoms which were discussed tonight. Otherwise OBGYN will contact the clinic and have the clinic reach out 2 Daina for follow-up appointment. 2. Anemia-hemoglobin tonight is 10.2 with previous value prior to delivery at 12.1. No fever chills abdominal pain at this time. Patient notes that she has only a little bit of vaginal discharge. 3. Disposition-home at this time. Return for worsening symptoms such as visual changes abdominal pain vomiting. Continue taking blood pressures at home. Medical Records Medical records reviewed: Yes I reviewed the patient's medical records Lab Data Lab results reviewed: Yes I reviewed the patient's lab results Labs: Lab Results 10/06/24 10/06/24 Range/Units 23:20 23:39 WBC 8.03 (4.50-11.00) K/uL RBC 3.28 L (4.00-5.20) m/uL Hgb 10.2 L (12.0-16.0) gm/dL Hct 30.7 L (33.0-51.0) % MCV 94 (80-100) fL MCH 31 (26-34) pg MCHC 33 (32-36) gm/dL RDW Coeff of [place] 13.0 (11.5-15.5) % Plt Count 215 (140-440) K/uL Neut % (Auto) 63.6 (42.0-72.0) % Lymph % (Auto) 24.5 (20-44) % [place] % (Auto) 7.7 (0.0-11.0) % Eos % (Auto) 3.4 (0.0-7.0) % Baso % (Auto) 0.6 (0.0-3.0) % Neut # (Auto) 5.10 (1.7-7.0) K/uL Lymph # (Auto) 1.97 (0.90-2.90) K/uL [place] # (Auto) 0.60 (0.00-0.90) K/UL Eos # (Auto) 0.27 (0.00-0.50) K/uL Baso # (Auto) 0.05 (0.00-0.30) K/uL Abs Immat Gran (auto) 0.02 (0.00-0.30) K/uL Imm/Tot Granulo (auto) 0.2 % Sodium 137 (135-149) mmol/L Potassium 4.0 (3.6-5.1) mmol/L Chloride 108 (96-114) mmol/L Carbon Dioxide 22 (20-32) mmol/L Anion Gap 7 (7-15) mEq/L BUN 17 (5-24) mg/dL Creatinine 0.7 (0.5-1.5) mg/dL Estimated Creat Clear 116.01 Estimated GFR 124 ml/min Glucose 89 (60-115) mg/dL Calcium 9.5 (8.4-10.6) mg/dL Total Bilirubin 0.3 (0.1-1.5) mg/dL AST 23 (12-35) U/L ALT 23 (4-35) U/L Alkaline Phosphatase 89 (40-150) U/L Total Protein 6.3 (6.0-8.3) g/dL Albumin 3.7 (3.3-5.0) g/dL Urine Color Yellow (Yellow) Urine Appearance Clear (Clear) Urine pH 6.0 (5.0-8.5) Ur Specific [place] <= 1.005 (1.000-1.030) Urine Protein Negative (Negative) Urine Glucose (UA) Negative (Negative) Urine Ketones Negative (Negative) Urine Blood 1+ A (Negative) Urine Nitrite Negative (Negative) Urine Bilirubin Negative (Negative) Urine Urobilinogen 0.2 (0.2-1.0) Ur Leukocyte Esterase 1+ A (Negative) Urine RBC 2-5 A (0-2) Urine WBC 2-5 (0-5) Ur Squamous Epith Cells None (None-Few) Urine Bacteria Few A (None) Discharge Plan Discharge Clinical Impression: Hypertension in , condition Patient Disposition: Home, Self-Care Condition: Improved Additional Instructions: Tonight you are given your 1st dose of a medication called nifedipine which is med to lower your blood pressure. You will take this medicine every 24 hours. May take this medication tomorrow night before bed. A prescription was sent to your pharmacy to be picked up tomorrow. Also, the OBGYN will be contacting the clinic to have them call you so that you can get a follow-up appointment. Return to the emergency room if you experience visual changes, bad headache, vomiting abdominal pain or worsening symptoms. Continue to take her blood pressure and keep a log of those readings. Make sure you are sitting quietly for 5 minutes before taking the reading. Prescriptions: New nifedipine 30 mg tablet extended release 30 mg PO DAILY Qty: 30 2RF No Action [id number] 3 fatty no.1 27-1-300 mg capsule 1 cap PO DAILY docusate sodium 100 mg Capsule 100 mg PO DAILY Qty: 100 0RF Rx Instructions: Take 1-2 tablets daily as needed for constipation. ibuprofen 600 mg Tablet 600 mg PO Q6H PRNQty: 90 0RF Follow Up/Referrals: Provider,Not a Local [Non-Staff, Family Practice] Stand Alone Forms: [employer] Info Instructions
[2024-10-06 23:22] LABS: Basophils Absolute Auto 0.05 K/uL (0.00-0.30); Basophils Percent Auto 0.6 % (0.0-3.0); Eosinophils Absolute Auto 0.27 K/uL (0.00-0.50); Eosinophils Percent Auto 3.4 % (0.0-7.0); Hematocrit 30.7 % (33.0-51.0); Hemoglobin* 10.2 gm/dL (12.0-16.0); Immature Granulocytes Abs Auto 0.02 K/uL (0.00-0.30); Immature Granulocytes Pct Auto 0.2 %; Lymphocytes Absolute Auto 1.97 K/uL (0.90-2.90); Lymphocytes Percent Auto 24.5 % (20-44); Mean Corpuscular HGB Conc 33 gm/dL (32-36); Mean Corpuscular Hemoglobin 31 pg (26-34); Mean Corpuscular Volume 94 fL (80-100); Monocytes Percent Auto 7.7 % (0.0-11.0); Neutrophils Percent Auto 63.6 % (42.0-72.0); Platelet Count* 215 K/uL (140-440); Red Blood Count 3.28 m/uL (4.00-5.20); White Blood Count* 8.03 K/uL (4.50-11.00)
[2024-10-06 23:26] LABS: Slide Review Reflex No
[2024-10-06 23:35] LABS: Albumin* 3.7 g/dL (3.3-5.0); Chloride* 108 mmol/L (96-114); Sodium* 137 mmol/L (135-149)
[2024-10-06 23:38] LABS: Alanine Aminotransferase* 23 U/L (4-35); Alkaline Phosphatase* 89 U/L (40-150); Anion Gap 7 mEq/L (7-15); Aspartate Amino Transferase* 23 U/L (12-35); Bilirubin Total* 0.3 mg/dL (0.1-1.5); Blood Urea Nitrogen* 17 mg/dL (5-24); Calcium* 9.5 mg/dL (8.4-10.6); Carbon Dioxide* 22 mmol/L (20-32); Creatinine* 0.7 mg/dL (0.5-1.5); Est. Creatinine Clearance* 116.01; Estimated Glomerular Filt Rate 124 ml/min; Glucose* 89 mg/dL (60-115); Total Protein* 6.3 g/dL (6.0-8.3)
[2024-10-06 23:47] LABS: Appearance Urine Clear (Clear); Bilirubin Urine Negative (Negative); Blood Urine 1+ (Negative); Color Urine Yellow (Yellow); Glucose Urine Negative (Negative); Ketones Urine Negative (Negative); Leukocyte Esterase Urine 1+ (Negative); Nitrite Urine Negative (Negative); Protein Urine Negative (Negative); Specific Gravity Urine <= 1.005 (1.000-1.030); Urobilinogen Urine 0.2 (0.2-1.0)
[2024-10-06 23:53] LABS: Bacteria Urine Few
[2024-10-07] VITALS: PULSE 68; O2SAT 97
[2024-10-07 00:01] VITALS: BP 136/98; PULSE 68; O2SAT 97
[2024-10-07] MEDS: NIFEdipine ER 30 MG TAB PO (00:31)
== END 2024-10-07 00:34 | disposition home or self-care (01) ==
PROVIDERS: Emergency Provider Family Medicine; PCP Advanced Practice Midwife
DX: O16.5 Unspecified maternal hypertension, complicating the puerperium (principal); O90.81 Anemia of the puerperium
CPT/HCPCS: 36415; 80053; 81001; 85025; 87086; 99283; 99284; A9270

== ENCOUNTER 2024-11-09 15:43 | Outpatient (CLI) | payer BC, SELFPAY ==
[2024-11-11 19:39] LABS: HPV Source Cervical
[2024-11-17 10:10] LABS: Pap Test Digital Imaging Done
== END 2024-11-09 15:44 | disposition home or self-care (01) ==
PROVIDERS: PCP Advanced Practice Midwife; Visit Provider Advanced Practice Midwife
DX: Z12.4 Encounter for screening for malignant neoplasm of cervix (principal); Z11.51 Encounter for screening for human papillomavirus (HPV)
CPT/HCPCS: 87624; 87625; 88141; 88142; 88175